=== PATIENT | female | born 1945 | race Caucasian/White ===

== ENCOUNTER 2017-09-09 12:51 | Outpatient (CLI) | payer MEDICARE ==
[2017-09-09 14:15] LABS: Hematocrit 41.7 % (36.0-47.0); Mean Platelet Volume 7.8 fL (7.4-10.4); Red Blood Cell (RBC) Count 5.04 mill/uL (4.20-5.40); White Blood Cell (WBC) Count 8.5 thou/uL (4.8-10.8)
[2017-09-09 14:21] LABS: Prothrombin Time 12.9 SEC (12.0-14.7)
[2017-09-09 14:22] LABS: PTT 26.2 SEC (22.9-36.1)
[2017-09-09 14:40] LABS: ALT (SGPT) 25 U/L (8-55); AST (SGOT) 18 U/L (5-34); Alkaline Phosphatase 69 U/L (40-150); Anion Gap 11 mmol/L (10-20); BUN (Urea Nitrogen) 15 mg/dL (9.8-20.1); Bilirubin, Total 0.5 mg/dL (0.2-1.2); Calc. Creatinine Clearance 0 mL/min (70-130); Calcium 9.9 mg/dL (7.8-10.44); Carbon Dioxide 31 mmol/L (23-31); Chloride 101 mmol/L (98-107); Cholesterol 247 mg/dl (< 200 Desired); Estimated GFR-MDRD 69; Globulin 2.4 g/dL (2.4-3.5); Protein, Total 6.9 g/dL (6.0-8.3)
== END 2017-09-09 12:52 | disposition home or self-care (01) ==
LOC: LABBT 12:51
PROVIDERS: ATTEND Internal Medicine Cardiovascular Disease
DX: Z01.818 Encounter for other preprocedural examination (principal); I20.0 Unstable angina
CPT/HCPCS: 80053; 80061; 85027; 85610; 85730

== ENCOUNTER 2017-09-12 06:08 | Inpatient (IN) | payer MEDICARE ==
[2017-09-12] MEDS ORDERED: Diazepam 5 MG TAB ONE (06:17)
[2017-09-12] MEDS ORDERED: Sodium Chloride 0.9% 1,000 ML IV SCH (07:15)
[2017-09-12] MEDS ORDERED: Diazepam 5 MG TAB PO SCH (07:15)
[2017-09-12] MEDS ORDERED: Fentanyl 100 MCG/2 ML VIAL ONE (07:19)
[2017-09-12] MEDS ORDERED: Midazolam HCl 2 mg/2 ml Vial ONE (07:19)
[2017-09-12] MEDS ORDERED: Vecuronium 10 MG VIAL ONE ×2 (08:56→10:10)
[2017-09-12] MEDS ORDERED: Midazolam HCl 5 mg/5 ml Vial ONE (08:56)
[2017-09-12] MEDS ORDERED: Fentanyl 250 MCG/5 ML VIAL ONE ×2 (08:56)
[2017-09-12] MEDS ORDERED: Heparin 10,000 UNITS/1 ML VIAL 30,000 UNITS in Sodium Chloride 0.9% 1,000 ML FS SCH (09:15)
--- NOTE | 2017-09-12 09:48 | CON ---
DATE OF CONSULTATION: 09/12/2017 HISTORY OF PRESENT ILLNESS: This is a 71-year-old female with multiple cardiovascular risk factors who suffered an anterior NV about 20 years ago and underwent stenting to her LAD. She then underwen t cardiac catheterization about 10 years ago and continued good result from the LAD stent. Over the last 3 weeks, she has had recurrent chest discomfort with minimal exertion and catheterization toda y demonstrated 90% in-stent stenosis of the LAD as well as 90% stenosis of the main right coronary a rtery with several lesions in the proximal and mid right coronary artery. The circumflex appeared n ormal. The left ventricular function was slightly diminished at about 45%. Risk factors include di abetes mellitus that has been poorly controlled with hemoglobin A1c in the 8 range. She does not ch franklin her sugars at home. She has hypertension as well as elevated cholesterol and triglyceride level s and takes her medicines sporadically because they upset her stomach. PAST SURGICAL HISTORY: Includes appendectomy and hysterectomy. She has also had removal of a blood clot or repair of a right brachial artery about 1 year ago related to a kidney stone while in an [facility]. CURRENT MEDICATIONS: Metformin 500 b.i.d., Amaryl 4 mg q.a.m., Zoloft 100 mg b.i.d., lisinopril/HCT Z 10/12.5 daily, Coreg 12.5 b.i.d., aspirin 1 a day, Lipitor 40 q.a.m. ALLERGIES: SURGICAL TAPE. SOCIAL HISTORY: She is a nonsmoker. She lives alone, although one daughter lives next door to her and one lives in [place]. PHYSICAL EXAMINATION: GENERAL: She is an alert, cooperative lady. VITAL SIGNS: Height 5 foot 5, weight 185, resting comfortably post-catheterization. NECK: She is wearing oxygen with no carotid bruits. LUNGS: Clear to auscultation anteriorly. CARDIAC: Regular rate and rhythm, no murmurs. ABDOMEN: Obese, nontender. EXTREMITIES: She has a dressing on the right groin and she has palpable popliteal and posterior tib ial pulses bilaterally. She has no peripheral edema. After review of her cardiac catheterization I feel that coronary bypass grafting to the LAD and dist al right coronary artery could be done today. Informed consent has been obtained. We have also discussed the need for better risk factor control, although she has done surprisingly w ell over the last 20 years with only marginal treatment of her risk factors.
[2017-09-12] MEDS ORDERED: Lidocaine 2% PF 10 ML AMP (For Epidural Use) ONE (10:10)
[2017-09-12] MEDS ORDERED: Propofol 200 MG/20 ML VIAL ONE (10:10)
[2017-09-12] MEDS ORDERED: Insulin Regular 300 UNITS/3 ML VIAL ONE (10:34)
--- NOTE | 2017-09-12 12:58 | OP ---
DATE OF PROCEDURE: 09/12/2017 PREOPERATIVE DIAGNOSIS: Coronary artery disease. POSTOPERATIVE DIAGNOSIS: Coronary artery disease. PROCEDURE: Coronary bypass graft x2, good quality SIMS to a 1.5 mm LAD, a satisfactory saphenous ve in to a 2 mm distal right proximal PDA. SURGEON: Dr. Dudley Montgomery MITTEN SEWER: Prashant Wolff M.D. TRANSFUSION: None. PROCEDURE IN DETAIL: After adequate anesthesia had been obtained, I placed a left radial arterial l ine and a right subclavian triple lumen CVP. The patient was then prepped and draped and Dr. Wolff harvested the left greater saphenous vein while I performed a median sternotomy. After opening the sternum, the right pleura had been entered. The mammary artery on the left was then harvested. Th e patient was heparinized, the mammary divided distally, passed posterior to the thymus gland. Aort a and right atrium were cannulated and cardiopulmonary bypass instituted. Aorta was cross-clamped a nd a liter of [place] cardioplegic solution was then given following which the distal right coronar y artery was opened onto the PDA and saphenous vein anastomoses completed here. Following this, LANDRUM A to LAD was completed. After this had been done, cross-clamp was removed, partial occluding clamp placed, and a single proximal anastomosis performed. It was marked with a ring. The patient was th en weaned from cardiopulmonary bypass, cannulas were removed, and protamine was given systemically. Mediastinal and bilateral pulmonary drains were placed, following which the sternum was reapproxima diya using vancomycin paste on the sternal edges, platelet-enriched blood, and platelet-poor plasma. A #7 interrupted wire was then utilized following which the subcutaneous tissue was closed in layer s and then skin closed. The patient is to be taken to the ICU in guarded condition.
[2017-09-12] MEDS ORDERED: Hetastarch 6% 500 ML 500 ML IVPB PRN (13:24)
[2017-09-12] MEDS ORDERED: Bisacodyl 5 MG TAB PO PRN (13:24)
[2017-09-12] MEDS ORDERED: Bisacodyl 10 MG SUPP PR PRN (13:24)
[2017-09-12] MEDS ORDERED: Phenylephrine 10 MG/NS 250 ML 250 ML IVPB PRN (13:24)
[2017-09-12] MEDS ORDERED: Guaifenesin DM 100-10/5 ML UDCUP PO PRN (13:24)
[2017-09-12] MEDS ORDERED: Post-Op Insulin Drip Protocol IVPB ONE (13:24)
[2017-09-12] MEDS ORDERED: Acetaminophen 325 MG TAB PO PRN (13:24)
[2017-09-12] MEDS ORDERED: DOPamine 400 MG/D5W 250 ML 250 ML IVPB PRN (13:24)
[2017-09-12] MEDS ORDERED: Magnesium Sulfate 5 GM in Sodium Chloride 0.9% 250 ML 1,000 ML IV SCH (13:24)
[2017-09-12] MEDS ORDERED: hydrALAZINE 20 MG/ML VIAL SLOW IVP PRN (13:24)
[2017-09-12] MEDS ORDERED: Fentanyl 100 MCG/2 ML VIAL SLOW IVP PRN (13:24)
[2017-09-12] MEDS ORDERED: Promethazine HCl 25 MG/ML VIAL IM PRN (13:24)
[2017-09-12] MEDS ORDERED: Mag-Al 1200 mg/1200 mg/30 ML UDCUP PO PRN (13:24)
[2017-09-12] MEDS ORDERED: Nitroglycerin 50 MG/250 ML BOT 250 ML IVPB PRN (13:24)
[2017-09-12] MEDS ORDERED: Morphine 2 MG/ML SYRINGE SLOW IVP PRN (13:24)
[2017-09-12] MEDS ORDERED: Dextrose 5% in Water 1,000 ML IV PRN (13:29)
[2017-09-12] MEDS ORDERED: Dextrose 50% Abboject 50 ML SYRINGE SLOW IVP PRN (13:29)
[2017-09-12] MEDS ORDERED: Iopamidol 370 76% 100 ML VIAL ONE (13:35)
[2017-09-12] MEDS: Fentanyl 100 MCG/2 ML VIAL SLOW IVP PRN ×2 (13:40→21:08)
[2017-09-12 13:43] LABS: Hematocrit 34.2 % (36.0-47.0); Mean Platelet Volume 7.7 fL (7.4-10.4); Red Blood Cell (RBC) Count 4.25 mill/uL (4.20-5.40); White Blood Cell (WBC) Count 25.3 thou/uL (4.8-10.8)
[2017-09-12 13:51] LABS: PTT 26.3 SEC (22.9-36.1); Prothrombin Time 15.9 SEC (12.0-14.7)
[2017-09-12 14:00] LABS: Anion Gap 13 mmol/L (10-20); BUN (Urea Nitrogen) 12 mg/dL (9.8-20.1); Calc. Creatinine Clearance 102 mL/min (70-130); Calcium 7.4 mg/dL (7.8-10.44); Carbon Dioxide 23 mmol/L (23-31); Chloride 108 mmol/L (98-107); Estimated GFR-MDRD 86
[2017-09-12 14:09] VITALS: BMI 27.9
[2017-09-12] MEDS ORDERED: Ketorolac Tromethamine 30 MG/ML VIAL IVP SCH (14:15)
[2017-09-12 14:18] LABS: Band 8 % (5-11); Neutrophil 75 % (42-75); Reactive Lymphocytes 1 % (0-10)
[2017-09-12] MEDS: Sodium Chloride 0.9% 1,000 ML IV SCH (14:31)
[2017-09-12] MEDS: Potassium Chloride 20 MEQ/100 ML PREMIX BAG IVPB PRN ×2 (14:34→20:42)
[2017-09-12] MEDS: Ondansetron HCl/PF 4 MG/2 ML Vial IVP PRN (15:04)
--- NOTE | 2017-09-12 15:49 | RAD ---
PORTABLE SUPINE CHEST: History: Post op sternotomy. Follow up. Comparison: 06-16-14 FINDINGS: ET tube and NG tube are in place. Central line is in adequate position. There are drainage catheters . Post op sternotomy changes. Linear atelectasis in the left lung base. Bibasilar atelectasis, more prominent on the left. Lungs are otherwise well aerated and clear. POS: [facility]
[2017-09-12] MEDS: CEFAZOLIN/Water 2 GM/20 ML SYRINGE SLOW IVP SCH (17:17)
[2017-09-12] MEDS: Ketorolac Tromethamine 30 MG/ML VIAL IVP SCH ×2 (17:17→23:54)
[2017-09-12] MEDS: HYDROcodone/Acetaminophen 5/325 mg Tablet PO PRN ×2 (18:52→22:41)
[2017-09-12 18:55] LABS: Hematocrit 38.3 % (36.0-47.0)
[2017-09-12] MEDS: Famotidine/PF 20 mg/2ml Vial SLOW IVP SCH (20:41)
[2017-09-12] MEDS: Atorvastatin Calcium 20 MG TAB PO SCH (20:41)
[2017-09-13] MEDS: Sodium Chloride 0.9% 1,000 ML IV SCH ×2 (00:25→14:53)
[2017-09-13] MEDS: CEFAZOLIN/Water 2 GM/20 ML SYRINGE SLOW IVP SCH ×2 (02:20→09:53)
[2017-09-13] MEDS: HYDROcodone/Acetaminophen 5/325 mg Tablet PO PRN ×4 (02:48→20:04)
[2017-09-13] MEDS: Ondansetron HCl/PF 4 MG/2 ML Vial IVP PRN (02:52)
[2017-09-13 04:43] LABS: Anion Gap 12 mmol/L (10-20); BUN (Urea Nitrogen) 10 mg/dL (9.8-20.1); Calc. Creatinine Clearance 101 mL/min (70-130); Calcium 7.2 mg/dL (7.8-10.44); Carbon Dioxide 24 mmol/L (23-31); Chloride 107 mmol/L (98-107); Estimated GFR-MDRD Greater than 90
[2017-09-13 04:47] LABS: #Lymphocytes 1.1 thou/uL (1.20-3.40); #Monocytes 1.1 thou/uL (0.11-0.59); #Neutrophils 16.4 thou/uL (1.40-6.50); %Basophils 0.1 % (0.0-1.0); %Eosinophils 0.1 % (0.0-10.0); %Lymphocytes 5.8 % (21.0-51.0); Hematocrit 35.3 % (36.0-47.0); Mean Platelet Volume 7.8 fL (7.4-10.4); Red Blood Cell (RBC) Count 4.31 mill/uL (4.20-5.40); White Blood Cell (WBC) Count 18.6 thou/uL (4.8-10.8)
[2017-09-13] MEDS: Ketorolac Tromethamine 30 MG/ML VIAL IVP SCH ×3 (05:46→17:24)
[2017-09-13] MEDS: Potassium Chloride 20 MEQ/100 ML PREMIX BAG IVPB PRN (05:50)
--- NOTE | 2017-09-13 05:55 | CON ---
DATE OF CONSULTATION: 09/12/2017 HISTORY OF PRESENT ILLNESS: Laurie Lind is a 71-year-old pleasant female intubated on the ve nt, status post emergency cardiac cath and CABG. Cath done years ago. She had a stent placed in. Three weeks ago, she started having recurrent chest pain. Cath demonstrated 90% stenosis in LAD and the right coronary. Please see Dr. Montgomery's note. Daughter says the patient has quit smoking 20 years ago. She is otherwise relatively healthy, other man shortness of breath, coughing, and wheezing. PAST MEDICAL HISTORY: Diabetes, hypertension, depression. HOME MEDICATIONS: Metformin 500, Amaryl 4, Zoloft 100, lisinopril 10, Coreg 12.5, and Lipitor. PAST SURGICAL HISTORY: Hysterectomy, appendix, some kind of blood clot removed from the right brach ial artery. REVIEW OF SYSTEMS: Otherwise negative. PHYSICAL EXAMINATION: GENERAL: She is awake and alert, on the CPAP. VITAL SIGNS: Pulse 94, sats 100%, good tidal volume, blood pressure 110/60. CHEST: Decreased breath sounds, no wheezing. CARDIAC: Normal S1 and S2. No gallops. ABDOMEN: Soft. No masses. LABORATORY DATA: White count 25,000, H\T\H 11 and 34, platelet count is 220. Electrolytes are norm al. Glucose slightly elevated. X-ray showed no acute infiltrates. IMPRESSION: Status post coronary artery bypass graft with diabetes, hypertension, depression, and l eukocytosis. Wean per protocol. Continue Ancef. Recheck an x-ray tomorrow. Persistent leukocytosis, consider b road spectrum antibiotics. We will follow.
--- NOTE | 2017-09-13 07:28 | EKG ---
Test Reason : POST CABG Blood Pressure : / mmHG Vent. Rate : 102 BPM Atrial Rate : 102 BPM P-R Int : 184 ms QRS Dur : 092 ms QT Int : 378 ms P-R-T Axes : 056 -38 136 degrees QTc Int : 492 ms Sinus tachycardia Left axis deviation Nonspecific ST-T changes Poor anterior R wave progression Abnormal ECG When compared with ECG of 21-MAY-2010 15:53, T wave inversion more evident in Lateral leads QT has lengthened Confirmed by DR. Jorge PHILLIP ([id number]) on 09/13/2017 7:27:56 AM Referred By: BRANDON Confirmed By:DR. Jorge PHILLIP
--- NOTE | 2017-09-13 08:51 | RAD ---
1 VIEW CHEST: Date: 09/13/17 COMPARISON: 09/12/17. HISTORY: Status post open heart surgery. FINDINGS: Interval removal of endotracheal tube. Redemonstration of right-sided central venous catheter and bi lateral chest tubes. Minimal parenchymal changes. No pneumothorax. Sternotomy wires are noted. There is consolidation with air bronchograms in the left lower lobe. IMPRESSION: Postoperative changes. POS: [facility]
[2017-09-13] MEDS ORDERED: Cefepime 1 GM in Sodium Chloride 0.9% 100 ML IVPB SCH (09:00)
[2017-09-13] MEDS: Famotidine/PF 20 mg/2ml Vial SLOW IVP SCH ×2 (09:07→20:03)
[2017-09-13] MEDS: Aspirin 325 MG TAB PO SCH (09:07)
[2017-09-13] MEDS: Fentanyl 100 MCG/2 ML VIAL SLOW IVP PRN (09:12)
--- NOTE | 2017-09-13 09:12 | PRG ---
DATE OF SERVICE: 09/13/2017 This morning she is awake, alert, responsive, complaining of pain, postop CABG. PHYSICAL EXAMINATION: VITAL SIGNS: Blood pressure 107/61, sats are 91-92, respiration rate 18. CHEST: Chest reveals decreased breath sounds without any wheezing. CARDIAC: Normal S1, S2. ABDOMEN: Soft, no masses. NEURO: Neurologically, she is awake, alert, responsive. LABORATORY AND X-RAY FINDINGS: X-ray shows slight cardiomegaly, elevated diaphragms, nonspecific le ft-sided infiltrate. IMPRESSION: 1. Post-coronary artery bypass graft. 2. Left lung atelectasis. PLAN: Continue supportive care and PT. We will follow. I am going to start her on empiric antibiotics since there is a left retrocardiac d ensity.
--- NOTE | 2017-09-13 09:19 | PRG ---
DATE OF SERVICE: 09/13/2017 Ms. Kaplan is doing well postoperatively. No complaints. PHYSICAL EXAMINATION: VITAL SIGNS: Blood pressure 110 systolic. Pulse in the 80s and 90s, normal sinus rhythm. ABDOMEN: Soft, nontender. EXTREMITIES: No edema. ASSESSMENT: 1. Status post coronary bypass grafting done urgently with a critical stenosis. 2. Hypercholesterolemia. The patient's cholesterol previously had been controlled, but the patient had stopped taking her medicines. PLAN: 1. Continue current medical regimen including aspirin. 2. Resume statin therapy. 3. Probably remove chest tubes tomorrow.
[2017-09-13] MEDS ORDERED: Cefepime 1 GM, Admixture Fee 1 EACH in Sodium Chloride 0.9% 100 ML IVPB SCH (10:00)
[2017-09-13] MEDS ORDERED: Insulin Detemir 100 UNITS/ML 12 UNITS in Pre-Filled Syringe 1 EACH SC SCH (10:45)
[2017-09-13 12:46] LABS: Sodium 140 mmol/L (135-148)
[2017-09-13 12:46] LABS: Sodium 141 mmol/L (135-148)
[2017-09-13 12:46] LABS: Oxyhemoglobin 98.1 % (94.0-97.0); Sodium 139 mmol/L (135-148)
[2017-09-13 12:47] LABS: Sodium 139 mmol/L (135-148)
[2017-09-13 12:47] LABS: Oxyhemoglobin 97.8 % (94.0-97.0); Sodium 141 mmol/L (135-148)
[2017-09-13 12:52] LABS: Mode OR ABG; Vent YES
[2017-09-13 12:53] LABS: Mode ORABG; Vent YES
[2017-09-13 12:55] LABS: Mode OR ABG; Vent YES
[2017-09-13 12:55] LABS: Mode OR ABG; Vent YES
[2017-09-13 12:55] LABS: Mode OR ABG; Vent YES
[2017-09-13] MEDS ORDERED: Sodium Chloride 0.9% 10 ML ONE (17:14)
[2017-09-13] MEDS: Insulin Regular 300 UNITS/3 ML VIAL SC PRN ×2 (17:34→20:23)
[2017-09-13] MEDS: Cefepime 1 GM, Admixture Fee 1 EACH in Sodium Chloride 0.9% 100 ML IVPB SCH (20:02)
[2017-09-13] MEDS: Atorvastatin Calcium 20 MG TAB PO SCH (20:03)
[2017-09-14] MEDS: Ketorolac Tromethamine 30 MG/ML VIAL IVP SCH ×3 (00:24→12:13)
[2017-09-14] MEDS: Sodium Chloride 0.9% 1,000 ML IV SCH (04:57)
[2017-09-14] MEDS: HYDROcodone/Acetaminophen 5/325 mg Tablet PO PRN ×3 (04:57→21:10)
[2017-09-14 05:25] LABS: #Eosinphils 0.1 thou/uL (0.0-0.7); #Lymphocytes 1.6 thou/uL (1.20-3.40); #Monocytes 0.6 thou/uL (0.11-0.59); #Neutrophils 9.4 thou/uL (1.40-6.50); %Basophils 0.1 % (0.0-1.0); %Eosinophils 0.5 % (0.0-10.0); %Monocytes 4.8 % (0.0-10.0); Hematocrit 28.7 % (36.0-47.0); Mean Platelet Volume 7.9 fL (7.4-10.4); Red Blood Cell (RBC) Count 3.39 mill/uL (4.20-5.40); White Blood Cell (WBC) Count 11.6 thou/uL (4.8-10.8)
[2017-09-14 05:45] LABS: Anion Gap 8 mmol/L (10-20); BUN (Urea Nitrogen) 10 mg/dL (9.8-20.1); Calc. Creatinine Clearance 97 mL/min (70-130); Calcium 7.7 mg/dL (7.8-10.44); Carbon Dioxide 26 mmol/L (23-31); Chloride 105 mmol/L (98-107); Estimated GFR-MDRD 90
[2017-09-14] MEDS: Insulin Regular 300 UNITS/3 ML VIAL SC PRN ×4 (06:10→22:32)
[2017-09-14] MEDS: Aspirin 325 MG TAB PO SCH (07:09)
[2017-09-14] MEDS: Famotidine/PF 20 mg/2ml Vial SLOW IVP SCH (07:09)
--- NOTE | 2017-09-14 08:42 | RAD ---
1 VIEW CHEST: Date: 09/14/17 COMPARISON: 09/13/17. HISTORY: Status post open heart surgery. FINDINGS: Stable right-sided central venous catheter. Interval removal of bilateral chest tubes. Pleural and p arenchymal changes left lung base. Diminished lung volumes. Sternotomy wires are noted. No definite pneumothorax. IMPRESSION: Pleural and parenchymal changes left lung base. POS: [facility]
[2017-09-14] MEDS: Cefepime 1 GM, Admixture Fee 1 EACH in Sodium Chloride 0.9% 100 ML IVPB SCH ×2 (09:38→21:08)
--- NOTE | 2017-09-14 09:45 | ULT ---
ULTRASOUND RIGHT GROIN FOR PSEUDOANEURYSM EVALUATION: Date: 09/14/17 INDICATION: Post catheterization procedure right groin. Groin tenderness and swelling. FINDINGS: Common femoral vein and common femoral artery show normal blood flow with Doppler and spectral regina sis. No evidence of pseudoaneurysm. No evidence of significant soft tissue hematoma. IMPRESSION: No evidence of pseudoaneurysm. POS: [facility]
--- NOTE | 2017-09-14 11:46 | PRG ---
DATE OF SERVICE: 09/14/2017 SUBJECTIVE: Ms. Lind feeling much better today after the chest tubes were removed. Her pain imp roved dramatically. PHYSICAL EXAMINATION: VITAL SIGNS: Blood pressure 124/40, pulse 80. LUNGS: Clear. CARDIAC: Normal S1, S2. ABDOMEN: Soft, nontender. EXTREMITIES: No edema. The right groin is mildly tender. ASSESSMENT: 1. Status post urgent bypass surgery for severe coronary artery disease. 2. Mild groin soreness. PLAN: 1. We will go ahead and do an ultrasound of the groin. She did go quickly to the operating room af ter sheath removal just to make sure her groin is okay. 2. Hypercholesterolemia, back on statin therapy. 3. Probably go to the floor soon and the patient is progressing nicely.
[2017-09-14] MEDS ORDERED: Furosemide 40 MG/4 ML VIAL SLOW IVP SCH (12:00)
[2017-09-14] MEDS ORDERED: Mag-Al 1200 mg/1200 mg/30 ML UDCUP PO PRN (13:29)
[2017-09-14] MEDS ORDERED: Bisacodyl 10 MG SUPP PR PRN (13:29)
[2017-09-14] MEDS ORDERED: Bisacodyl 5 MG TAB PO PRN (13:29)
[2017-09-14] MEDS ORDERED: diphenhydrAMINE 25 MG CAP PO PRN (13:29)
[2017-09-14] MEDS ORDERED: Mineral Oil ENEMA PR PRN (13:29)
[2017-09-14] MEDS ORDERED: Nitroglycerin 0.4 MG TAB 1 EACH SL PRN (13:29)
--- NOTE | 2017-09-14 17:22 | PRG ---
DATE OF SERVICE: 09/14/2017 SUBJECTIVE: Ms. Lind had no new complaints today. OBJECTIVE: VITAL SIGNS: She is afebrile, heart rate is 70, respiratory rate is 22, oximetry is 94, and blood p ressure 137/96. LUNGS: Clear anteriorly and laterally. HEART: Regular rhythm. ABDOMEN: Soft. LABORATORY AND DIAGNOSTIC DATA: Chest radiograph is unchanged with haziness at the left base as exp ected with heart surgery. White count is down from 18.6-11.6, hemoglobin 9.5, and platelets 134. E lectrolytes are normal. IMPRESSION: 1. ? pneumonia. 2. Status post emergent coronary artery bypass grafting. 3. History of lipid disorder. PLAN: Transfer out of the Critical Care Unit.
[2017-09-14] MEDS: metFORMIN 500 MG TAB PO SCH (17:38)
[2017-09-14] MEDS ORDERED: Insulin Regular 300 UNITS/3 ML VIAL SC SCH (18:00)
--- NOTE | 2017-09-14 19:32 | PDOC.PN ---
- Subjective Encounter Start Date: 09/14/17 Encounter Start Time: 19:30 Pt seen for management of medical comorbidities including diabetes mellitus. Denies chest pain, shortness of breath, fevers or chills. - Objective Vital Signs & Weight: Vital Signs (12 hours) Temp Pulse Resp BP Pulse Ox 09/14/17 17:50 98.3 F 85 20 114/54 L 92 L 09/14/17 13:57 99 09/14/17 13:56 98.2 F 90 22 H 137/96 H 94 L 09/14/17 12:00 98.4 F Weight Admit Weight 167 lb 8.821 oz Weight 159 lb 9.835 oz Most Recent Monitor Data Heart Rate from ECG 87 NIBP 125/45 NIBP BP-Mean 72 Respiration from ECG 25 SpO2 93 I&O: 09/13/17 09/14/17 09/15/17 06:59 06:59 06:59 Intake Total 2325.6 1434 1060 Output Total 1640 1345 1736 Balance 685.6 89 -676 Result Diagrams: 09/14/17 04:55 09/14/17 04:55 Additional Labs: Accuchecks 09/14/17 09/14/17 09/13/17 10:58 06:10 20:22 POC Glucose 261 H 220 H 272 H Phys Exam - Physical Examination Constitutional: NAD HEENT: moist MMs, oral pharynx no lesions Neck: supple Respiratory: clear to auscultation bilateral Cardiovascular: RRR Gastrointestinal: soft, non-tender, positive bowel sounds Neurological: moves all 4 limbs Psychiatric: normal affect Skin: no rash Deviation from normal: surgical sites clean Dx/Plan (1) DM2 (diabetes mellitus, type 2) Status: Chronic (2) Dyslipidemia Code(s): E78.5 - HYPERLIPIDEMIA, UNSPECIFIED Status: Chronic (3) Hypertension Code(s): I10 - ESSENTIAL (PRIMARY) HYPERTENSION Status: Chronic - Plan * . Accuchecks high, start Levemir 10 units in AM and 5 units in PM (to decrease the chance of nocturnal hypoglycemia), continue accuchecks and titrate insulin. Continue insulin sliding scale. Continue statin. Monitor vital signs and titrate antihypertensives as needed. s/p CABG. Code status: Full. Review of Systems - Review of Systems Constitutional: negative: Fever, Chills, Sweats, Weakness, Malaise Respiratory: negative: Cough, Dry, Shortness of Breath, Hemoptysis, SOB with Excertion, Pleuritic Pain, Sputum, Wheezing Cardiovascular: negative: Chest Pain, Palpitations, Orthopnea, Paroxysmal Noc. Dyspnea, Edema, Light Headedness - Medications/Allergies Allergies/Adverse Reactions: Allergies Allergy/AdvReac Type Severity Reaction Status Date / Time SURGICAL TAPE Allergy Rash Uncoded 09/09/17 13:31 Medications: Current Medications Acetaminophen (Tylenol) 650 mg PO Q6H PRN PRN Reason: Headache/Fever Or Mild Pain Hydrocodone Bitart/Acetaminophen (Brady 5/325) 1 tab PO Q4H PRN PRN Reason: Moderate Pain (4-6) Last Admin: 09/12/17 22:41 Dose: 1 tab Hydrocodone Bitart/Acetaminophen (Brady 5/325) 2 tab PO Q4H PRN PRN Reason: Severe Pain (7-10) Last Admin: 09/14/17 14:11 Dose: 2 tab Al Hydroxide/Mg Hydroxide (Maalox) 30 ml PO Q4H PRN PRN Reason: Indigestion Albuterol/Ipratropium (Duoneb) 3 ml NEB [id number] PRN PRN Reason: SHORTNESS OF BREATH Last Admin: 09/13/17 22:47 Dose: 3 ml Aspirin (Ecotrin) 325 mg PO DAILY [facility] Atorvastatin Calcium (Lipitor) 20 mg PO HS [facility] Bisacodyl (Dulcolax) 10 mg PO Q12H PRN PRN Reason: Constipation Bisacodyl (Dulcolax) 10 mg CA Q12H PRN PRN Reason: Constipation Carvedilol (Coreg) 3.125 mg PO BID [facility] Dextrose/Water (Dextrose 50%) 25 gm SLOW IVP PRN PRN PRN Reason: PER HYPOGLYCEMIC PROTOCOL Diphenhydramine HCl (Benadryl) 25 mg PO Q6H PRN PRN Reason: Itching & Insomnia or Mohit Erich Famotidine (Pepcid) 20 mg PO BID [facility] Furosemide (Lasix) 40 mg PO DAILY-AC [facility] Glimepiride (Amaryl) 4 mg PO QAM-WM [facility] Glucagon (Glucagon) 1 mg SC PRN PRN PRN Reason: PER HYPOGLYCEMIC PROTOCOL Guaifenesin/Dextromethorphan (Robitussin Dm) 15 ml PO Q4H PRN PRN Reason: Cough Dextrose/Water (D5w) 1,000 mls @ 0 mls/hr IV INF PRN; As Directed PRN Reason: PRN HYPOGLYCEMIC PROTOCOL Cefepime HCl 1 gm/Miscellaneous Medication 1 each/ Sodium Chloride 100 mls @ 200 mls/hr IVPB Q12HR [facility] Last Admin: 09/14/17 09:38 Dose: 100 mls Insulin Detemir 10 units/ (Miscellaneous Medication) 0.1 mls @ 0 mls/hr SC QAM [facility] Insulin Detemir 5 units/ (Miscellaneous Medication) 0.05 mls @ 0 mls/hr SC HS [facility] Insulin Human Regular (Humulin R) 0 units SC Q4H PRN; Protocol PRN Reason: POST OP SLIDING SCALE Last Admin: 09/14/17 17:37 Dose: 10 units Insulin Human Regular (Humulin R) 5 units SC NOW [facility] Stop: 09/14/17 20:00 Last Admin: 09/14/17 17:55 Dose: 5 unit Metformin HCl (Glucophage) 1,000 mg PO BID-[facility] Last Admin: 09/14/17 17:38 Dose: 1,000 mg Mineral Oil (Fleet Mineral Oil) 133 ml CA DAILYPRN PRN PRN Reason: Constipation Nitroglycerin (Nitrostat) 0.4 mg SL Q5MIN PRN PRN Reason: Chest Pain Ondansetron HCl (Zofran) 4 mg IVP Q6H PRN PRN Reason: Nausea/Vomiting Last Admin: 09/13/17 02:52 Dose: 4 mg Potassium Chloride (Klor-Con 10) 10 meq PO QAM-[facility] Sertraline HCl (Zoloft) 100 mg PO BID [facility] Last Admin: 09/14/17 07:09 Dose: 100 mg
[2017-09-14] MEDS: Famotidine 20 MG TAB PO SCH (21:09)
[2017-09-14] MEDS: Carvedilol 3.125 MG TAB PO SCH (21:09)
[2017-09-14] MEDS: Atorvastatin Calcium 20 MG TAB PO SCH (21:09)
[2017-09-14] MEDS: Insulin Detemir 100 UNITS/ML 5 UNITS in Pre-Filled Syringe 1 EACH SC SCH (22:31)
[2017-09-15] MEDS: HYDROcodone/Acetaminophen 5/325 mg Tablet PO PRN ×4 (02:00→17:46)
[2017-09-15] MEDS: Aspirin 325 mg Enteric Coated Tablet PO SCH (08:16)
[2017-09-15] MEDS: Famotidine 20 MG TAB PO SCH ×2 (08:16→21:10)
[2017-09-15] MEDS: Glimepiride 4 MG TAB PO SCH (08:17)
[2017-09-15] MEDS: metFORMIN 500 MG TAB PO SCH ×2 (08:17→17:46)
[2017-09-15] MEDS: Insulin Detemir 100 UNITS/ML 10 UNITS in Pre-Filled Syringe 1 EACH SC SCH (08:17)
[2017-09-15] MEDS: Potassium Chloride 10 MEQ TAB PO SCH (08:17)
[2017-09-15] MEDS: Carvedilol 3.125 MG TAB PO SCH ×2 (08:17→21:10)
[2017-09-15] MEDS: Furosemide 40 MG TAB PO SCH (08:17)
[2017-09-15] MEDS: Insulin Regular 300 UNITS/3 ML VIAL SC PRN ×4 (08:18→21:13)
[2017-09-15] MEDS: Cefepime 1 GM, Admixture Fee 1 EACH in Sodium Chloride 0.9% 100 ML IVPB SCH (10:04)
--- NOTE | 2017-09-15 11:15 | PDOC.PN ---
- Subjective Encounter Start Date: 09/15/17 Encounter Start Time: 11:15 Subjective: very pleasant lady with daughter at bedside, c/o left calf burning with -: movement - Objective MAR Reviewed: Yes Vital Signs & Weight: Vital Signs (12 hours) Temp Pulse Resp BP Pulse Ox 09/15/17 08:00 97.9 F 78 18 92 L 09/15/17 07:55 97.9 F 78 18 123/58 L 92 L 09/15/17 04:00 98.5 F 87 20 114/56 L 94 L 09/15/17 00:00 18 Weight Admit Weight 167 lb 8.821 oz Weight 167 lb 14.4 oz Most Recent Monitor Data Heart Rate from ECG 87 NIBP 125/45 NIBP BP-Mean 72 Respiration from ECG 25 SpO2 93 I&O: 09/14/17 09/15/17 09/16/17 06:59 06:59 06:59 Intake Total 1434 1330 Output Total 1345 1836 Balance 89 -506 Result Diagrams: 09/14/17 04:55 09/14/17 04:55 Additional Labs: Accuchecks 09/15/17 09/14/17 09/14/17 06:07 20:50 10:58 POC Glucose 208 H 255 H 261 H Phys Exam - Physical Examination Constitutional: NAD HEENT: moist MMs, sclera anicteric Neck: supple, full ROM Respiratory: clear to auscultation bilateral Cardiovascular: RRR Gastrointestinal: soft, non-tender Musculoskeletal: no edema Neurological: non-focal, normal sensation, moves all 4 limbs Psychiatric: normal affect, A&O x 3 Deviation from normal: sternal wound c/d/i Dx/Plan (1) S/P CABG (coronary artery bypass graft) Code(s): Z95.1 - PRESENCE OF AORTOCORONARY BYPASS GRAFT Status: Acute (2) DM2 (diabetes mellitus, type 2) Status: Chronic (3) Dyslipidemia Code(s): E78.5 - HYPERLIPIDEMIA, UNSPECIFIED Status: Chronic (4) Hypertension Code(s): I10 - ESSENTIAL (PRIMARY) HYPERTENSION Status: Chronic - Plan cont current plan of care, plan discussed w/ family, PT/OT, incentive spirometry doing well, to rehab per CTS * .
--- NOTE | 2017-09-15 14:44 | PRG ---
DATE OF SERVICE: 09/15/2017 SUBJECTIVE: Laurie Lind is complaining of some paresthesias in her anterior left leg. She says these went away when she laid down, for return when she is walking or sitting up in a chair. Her d wesley tells me she has a history of spinal stenosis. I suspect these symptoms are related to that . OBJECTIVE: VITAL SIGNS: She is afebrile, heart rate 73, respiratory rate is 18, oximetry is 96 on 1 liter, blo od pressure 116/57. LUNGS: Clear. HEART: Regular rhythm. IMPRESSION: 1. ? pneumonia. 2. Status post coronary artery bypass grafting. 3. Lipid disorder. 4. Symptoms suggestive of spinal stenosis. PLAN: P.o. antimicrobial therapy. Continue physical therapy.
--- NOTE | 2017-09-15 19:32 | PRG ---
DATE OF SERVICE: 09/15/2017 HISTORY: Ms. Lind is doing better today. She is out on the telemetry. She has been walking fee l much better. PHYSICAL EXAMINATION VITAL SIGNS: Blood pressure 113/56, pulse 80s, regular. LUNGS: Clear. CARDIAC: Normal S1, normal S2. ABDOMEN: Soft, nontender. EXTREMITIES: No edema. ASSESSMENT: 1. Status post bypass surgery, doing well. 2. Hypercholesterolemia. The patient's cholesterol and triglycerides were very high cholesterol 24 7, triglycerides 558. She stopped taking some of the lipid lowering drugs. 3. Mild anemia. PLAN: Continue current medical regimen. She would likely be going home in 1-2 days.
[2017-09-15] MEDS: Atorvastatin Calcium 20 MG TAB PO SCH (21:10)
[2017-09-15] MEDS: Cefdinir 300 MG CAP PO SCH (21:10)
[2017-09-15] MEDS: Insulin Detemir 100 UNITS/ML 5 UNITS in Pre-Filled Syringe 1 EACH SC SCH (21:11)
[2017-09-16] MEDS: HYDROcodone/Acetaminophen 5/325 mg Tablet PO PRN ×4 (01:47→20:28)
[2017-09-16 07:41] LABS: Hemoglobin A1c 9.2 % (4.0-6.0)
--- NOTE | 2017-09-16 08:25 | PDOC.PN ---
- Subjective Encounter Start Date: 09/16/17 Encounter Start Time: 08:00 Subjective: no new complaints - Objective MAR Reviewed: Yes Vital Signs & Weight: Vital Signs (12 hours) Temp Pulse Resp BP Pulse Ox 09/16/17 04:00 98.1 F 78 18 129/59 L 93 L 09/16/17 00:00 18 Weight Admit Weight 167 lb 8.821 oz Weight 172 lb 1.6 oz Most Recent Monitor Data Heart Rate from ECG 87 NIBP 125/45 NIBP BP-Mean 72 Respiration from ECG 25 SpO2 93 I&O: 09/15/17 09/16/17 09/17/17 06:59 06:59 06:59 Intake Total 1330 1220 Output Total 1836 1150 Balance -506 70 Result Diagrams: 09/14/17 04:55 09/14/17 04:55 Additional Labs: Accuchecks 09/16/17 09/15/17 09/15/17 06:06 19:55 16:09 POC Glucose 197 H 185 H 156 H 09/15/17 12:07 POC Glucose 212 H Phys Exam - Physical Examination Constitutional: NAD HEENT: PERRLA, moist MMs, sclera anicteric Neck: supple, full ROM Respiratory: clear to auscultation bilateral Cardiovascular: RRR Gastrointestinal: soft, non-tender Musculoskeletal: no edema, pulses present Neurological: non-focal, moves all 4 limbs Psychiatric: normal affect, A&O x 3 Deviation from normal: sternal wound cdi Dx/Plan (1) S/P CABG (coronary artery bypass graft) Code(s): Z95.1 - PRESENCE OF AORTOCORONARY BYPASS GRAFT Status: Acute (2) DM2 (diabetes mellitus, type 2) Status: Chronic (3) Dyslipidemia Code(s): E78.5 - HYPERLIPIDEMIA, UNSPECIFIED Status: Chronic (4) Hypertension Code(s): I10 - ESSENTIAL (PRIMARY) HYPERTENSION Status: Chronic - Plan cont current plan of care, plan discussed w/ family, continue antibiotics, PT/OT , incentive spirometry disposition per CTS * .
[2017-09-16] MEDS: Potassium Chloride 10 MEQ TAB PO SCH (08:28)
[2017-09-16] MEDS: Cefdinir 300 MG CAP PO SCH ×2 (08:28→20:25)
[2017-09-16] MEDS: metFORMIN 500 MG TAB PO SCH ×2 (08:29→16:33)
[2017-09-16] MEDS: Furosemide 40 MG TAB PO SCH (08:29)
[2017-09-16] MEDS: Famotidine 20 MG TAB PO SCH ×2 (08:29→20:25)
[2017-09-16] MEDS: Aspirin 325 mg Enteric Coated Tablet PO SCH (08:29)
[2017-09-16] MEDS: Glimepiride 4 MG TAB PO SCH (08:29)
[2017-09-16] MEDS: Carvedilol 3.125 MG TAB PO SCH ×2 (08:30→20:25)
[2017-09-16] MEDS: Enoxaparin Sodium 40 MG/0.4 ML SYRINGE SC SCH (08:30)
[2017-09-16] MEDS: Insulin Detemir 100 UNITS/ML 10 UNITS in Pre-Filled Syringe 1 EACH SC SCH (09:22)
--- NOTE | 2017-09-16 09:43 | PRG ---
DATE OF SERVICE: 09/16/2017 This morning she is awake, alert, responsive. PHYSICAL EXAMINATION: VITAL SIGNS: Afebrile, temperature is 98, O2 sats 91, blood pressure 125/90, respirations 18, I's and O's 1330 in, 836 out. CHEST: Chest revealed decreased breath sounds without any wheezing. CARDIAC: Normal S1, S2. ABDOMEN: Soft, no masses. IMPRESSION: 1. Status post coronary artery bypass graft. 2. Leukocytosis. 3. Left retrocardiac density. PLAN: Give p.o. antibiotics, PT, supportive care.
--- NOTE | 2017-09-16 11:04 | PRG ---
DATE OF SERVICE: 09/16/2017 SUBJECTIVE: Ms. Lind is doing well. Her breathing is better. She has no angina. She has posto perative chest discomfort, but that is improving. PHYSICAL EXAMINATION: VITAL SIGNS: Blood pressure is 123/57, pulse 72, regular. LUNGS: Clear. CARDIAC: Normal S1, normal S2. ABDOMEN: Soft, nontender. EXTREMITIES: She has no edema. ASSESSMENT: 1. Status post bypass surgery. 2. Diabetes. 3. Hypercholesterolemia on medicines. PLAN: Probably home tomorrow. The patient is doing well now.
--- NOTE | 2017-09-16 11:04 | PQF ---
CLINICAL DOCUMENTATION IMPROVEMENT CLARIFICATION FORM: ICD-10 Updated PLEASE DO AN ADDENDUM TO THE PROGRESS NOTE WITH ANY DOCUMENTATION UPDATES OR ADDITIONS AND CARRY THROUGH TO DC SUMMARY. THANK YOU. DATE: 09/16/17 ATTN: Dr. Poli Quiroz Please exercise your independent, professional judgment in responding to the clarification form. Clinical indicators are provided on the bottom of this form for your review Please check appropriate box(s): [ ] Empirically treating Gram Negative Pneumonia [ ] Empirically treating Anaerobic Pneumonia [ ] Simple Pneumonia (community acquired - nosocomial) [ x] Pneumonia of unknown etiology [ ] Other diagnosis [ ] Unable to determine In addition, please specify: Present on Admission (POA): [ ] Yes [ ] No [ ] Unable to determine For continuity of documentation, please document condition throughout progress notes and discharge summary. Thank You. CLINICAL INDICATORS - SIGNS / SYMPTOMS / LABS PULM. PN 09/13: X-RAY SHOWS SLIGHT CARDIOMEGALY, ELEVATED DIAPHRAGMS, NONSPECIFIC LEFT-SIDED INFILTRATE LEFT LUNG ATELECTASIS START EMPIRIC ANTIBIOTICS SINCE THERE IS A L RETROCARDIAC DENSITY. PULM PN 09/14-09/15: ? PNEUMONIA S/P EMERGENT CABG RISKS: OP NOTE 09/12: CABG X2. PULMONOLOGY CONSULT 09/12: INTUBATED ON VENT, S/P EMERGENCY CARDIAC CATH & CABG. DIABETES, HYPERTENSION. PERSISTENT LEUKOCYTOSIS. TREATMENTS: CPOE 09/13 TO 09/15. IV MAXIPIME 1 GM Q 12 HR. CPOE 09/15: OMNICEF 300MG PO BID (This form is maintained as a part of the permanent medical record) 2014 [employer]. All Rights Reserved Adrianna Ly RN, BSN [email or web address] Office: [phone] [facility] [email or web address]
[2017-09-16 12:25] LABS: Oxyhemoglobin 97.8 % (94.0-97.0); Sodium 141 mmol/L (135-148)
[2017-09-16 13:05] LABS: Vent YES
[2017-09-16 13:06] LABS: Mode OR ABG
[2017-09-16] MEDS: Insulin Regular 300 UNITS/3 ML VIAL SC PRN ×3 (13:50→20:26)
[2017-09-16] MEDS: Atorvastatin Calcium 20 MG TAB PO SCH (20:25)
[2017-09-16] MEDS: Insulin Detemir 100 UNITS/ML 5 UNITS in Pre-Filled Syringe 1 EACH SC SCH (20:26)
[2017-09-17] MEDS: Carvedilol 3.125 MG TAB PO SCH ×2 (07:53→20:58)
[2017-09-17] MEDS: Potassium Chloride 10 MEQ TAB PO SCH (07:53)
[2017-09-17] MEDS: Furosemide 40 MG TAB PO SCH (07:53)
[2017-09-17] MEDS: Glimepiride 4 MG TAB PO SCH (07:53)
[2017-09-17] MEDS: Cefdinir 300 MG CAP PO SCH ×2 (07:53→20:59)
[2017-09-17] MEDS: Famotidine 20 MG TAB PO SCH ×2 (07:53→20:58)
[2017-09-17] MEDS: metFORMIN 500 MG TAB PO SCH ×2 (07:53→17:03)
[2017-09-17] MEDS: Aspirin 325 mg Enteric Coated Tablet PO SCH (07:54)
[2017-09-17] MEDS: Enoxaparin Sodium 40 MG/0.4 ML SYRINGE SC SCH (07:54)
[2017-09-17] MEDS: Insulin Detemir 100 UNITS/ML 10 UNITS in Pre-Filled Syringe 1 EACH SC SCH (09:07)
--- NOTE | 2017-09-17 09:37 | PDOC.PN ---
- Subjective Encounter Start Date: 09/17/17 Encounter Start Time: 09:00 Subjective: up in chair, c/o incisional pain. leg cramping resolved - Objective MAR Reviewed: Yes Vital Signs & Weight: Vital Signs (12 hours) Temp Pulse Resp BP Pulse Ox 09/17/17 08:03 98.4 F 76 20 121/59 L 93 L 09/17/17 08:00 98.4 F 76 20 93 L 09/17/17 04:00 98.0 F 73 16 112/57 L 92 L 09/17/17 00:50 93 L Weight Admit Weight 167 lb 8.821 oz Weight 168 lb 3.2 oz Most Recent Monitor Data Heart Rate from ECG 87 NIBP 125/45 NIBP BP-Mean 72 Respiration from ECG 25 SpO2 93 I&O: 09/16/17 09/17/17 09/18/17 06:59 06:59 06:59 Intake Total 1220 1680 Output Total 1150 2750 Balance 70 -1070 Result Diagrams: 09/14/17 04:55 09/14/17 04:55 Additional Labs: Accuchecks 09/17/17 09/16/17 09/16/17 05:17 19:59 16:33 POC Glucose 182 H 206 H 170 H 09/16/17 10:34 POC Glucose 235 H Phys Exam - Physical Examination Constitutional: NAD HEENT: PERRLA, moist MMs, sclera anicteric Neck: supple, full ROM Respiratory: no rhonchi, clear to auscultation bilateral Cardiovascular: RRR marques Gastrointestinal: soft, non-tender Musculoskeletal: no edema Neurological: non-focal, moves all 4 limbs Psychiatric: normal affect, A&O x 3 Skin: no rash Dx/Plan (1) S/P CABG (coronary artery bypass graft) Code(s): Z95.1 - PRESENCE OF AORTOCORONARY BYPASS GRAFT Status: Acute (2) DM2 (diabetes mellitus, type 2) Status: Chronic (3) Dyslipidemia Code(s): E78.5 - HYPERLIPIDEMIA, UNSPECIFIED Status: Chronic (4) Hypertension Code(s): I10 - ESSENTIAL (PRIMARY) HYPERTENSION Status: Chronic - Plan cont current plan of shelter once cleared by primary service * .
--- NOTE | 2017-09-17 11:32 | PRG ---
DATE OF SERVICE: 09/17/2017 This morning she is awake, alert, responsive. PHYSICAL EXAMINATION: VITAL SIGNS: Blood pressure 129/59. Sats are 93, temperature 98. She feels less short of breath. She is walking. CHEST: Chest revealed decreased breath sounds, no wheezing. CARDIAC: Normal S1, S2. ABDOMEN: Soft, no masses. IMPRESSION: 1. Status post coronary artery bypass graft. 2. Left-sided retrocardiac density on p.o. antibiotics. PLAN: Disposition as per Cardiology. We will follow at a distance. Please call as needed.
[2017-09-17] MEDS: Insulin Regular 300 UNITS/3 ML VIAL SC PRN ×2 (13:03→18:04)
[2017-09-17] MEDS: HYDROcodone/Acetaminophen 5/325 mg Tablet PO PRN ×2 (14:43→20:58)
[2017-09-17] MEDS: Ondansetron HCl/PF 4 MG/2 ML Vial IVP PRN (14:45)
[2017-09-17] MEDS: Atorvastatin Calcium 20 MG TAB PO SCH (20:57)
[2017-09-17] MEDS: Insulin Detemir 100 UNITS/ML 5 UNITS in Pre-Filled Syringe 1 EACH SC SCH (20:59)
--- NOTE | 2017-09-18 06:54 | DIS ---
HOSPITAL COURSE: This is a 71-year-old female who underwent cardiac catheterization today demonstra ting 90% LAD and right coronary lesions. She was taken to the operating room on the day of catheter ization where she underwent 2-vessel bypass grafting to the LAD and right PDA. Postoperative course was relatively unremarkable. Her glucose was significantly elevated and her admission A1c was 9.2. She was seen by Antoine and in addition to her admitting metformin and Amaryl she had the addition o f long-acting insulin twice a day. At the time of this dictation, I do not know which diabetic medi cine she will be discharged on; however, her other discharge medications will include resuming her a torvastatin 40 q.a.m., Coreg 3.125 b.i.d., Omnicef 300 b.i.d. She can resume her [id number] m edicines. She will receive a prescription for Tylenol #3, resume her Zoloft 100 mg a day. Continue her aspirin every day. She will follow up with me in 3 weeks and the plan is for outpatient cardiac rehab in [place] since s he is going to spend some time with her daughter there. Discharge and follow up instructions have roger bowden given.
[2017-09-18] MEDS: Furosemide 40 MG TAB PO SCH (09:44)
[2017-09-18] MEDS: metFORMIN 500 MG TAB PO SCH (09:44)
[2017-09-18] MEDS: Glimepiride 4 MG TAB PO SCH (09:44)
[2017-09-18] MEDS: Cefdinir 300 MG CAP PO SCH (09:45)
[2017-09-18] MEDS: Aspirin 325 mg Enteric Coated Tablet PO SCH (09:45)
[2017-09-18] MEDS: Famotidine 20 MG TAB PO SCH (09:45)
[2017-09-18] MEDS: Carvedilol 3.125 MG TAB PO SCH (09:45)
[2017-09-18] MEDS: Potassium Chloride 10 MEQ TAB PO SCH (09:45)
[2017-09-18] MEDS: Insulin Detemir 100 UNITS/ML 10 UNITS in Pre-Filled Syringe 1 EACH SC SCH (09:46)
[2017-09-18] MEDS: Enoxaparin Sodium 40 MG/0.4 ML SYRINGE SC SCH (09:46)
--- NOTE | 2017-09-18 11:03 | PDOC.PN ---
- Subjective Encounter Start Date: 09/18/17 Encounter Start Time: 10:59 Patient seen at bedside. No overnight events, no new complaints. - Objective MAR Reviewed: Yes Vital Signs & Weight: Vital Signs (12 hours) Temp Pulse Resp BP Pulse Ox 09/18/17 08:00 98.8 F 75 17 118/53 L 92 L 09/18/17 04:50 98.7 F 68 16 115/54 L 93 L Weight Admit Weight 167 lb 8.821 oz Weight 169 lb 1.6 oz Most Recent Monitor Data Heart Rate from ECG 87 NIBP 125/45 NIBP BP-Mean 72 Respiration from ECG 25 SpO2 93 I&O: 09/17/17 09/18/17 09/19/17 06:59 06:59 06:59 Intake Total 1680 1320 Output Total 2750 1250 Balance -1070 70 Result Diagrams: 09/14/17 04:55 09/14/17 04:55 Additional Labs: Accuchecks 09/18/17 09/17/17 09/17/17 05:29 20:06 17:00 POC Glucose 139 H 145 H 171 H 09/17/17 11:16 POC Glucose 199 H Phys Exam - Physical Examination Constitutional: NAD HEENT: moist MMs Neck: no JVD Respiratory: clear to auscultation bilateral Cardiovascular: RRR Gastrointestinal: soft Musculoskeletal: pulses present Neurological: moves all 4 limbs Psychiatric: A&O x 3 Deviation from normal: Surgical scar healing well Dx/Plan (1) S/P CABG (coronary artery bypass graft) Code(s): Z95.1 - PRESENCE OF AORTOCORONARY BYPASS GRAFT Status: Acute (2) DM2 (diabetes mellitus, type 2) Status: Chronic (3) Dyslipidemia Code(s): E78.5 - HYPERLIPIDEMIA, UNSPECIFIED Status: Chronic (4) Hypertension Code(s): I10 - ESSENTIAL (PRIMARY) HYPERTENSION Status: Chronic - Plan cont current plan of care * D/C Home with Insulin/Metformin/Amaryl * Instructions provided
[2017-09-18] MEDS: HYDROcodone/Acetaminophen 5/325 mg Tablet PO PRN (13:24)
[2017-09-18 13:44] VITALS: BP 123/58; TEMP 98.3
--- NOTE | 2017-09-18 15:18 | DIS ---
DATE OF ADMISSION: 09/12/2017 DATE OF DISCHARGE: 09/18/2017 DISCHARGE DISPOSITION: Home. DISCHARGE FOLLOWUP: 1. With Dr. Montgomery in 3 weeks. 2. The patient will arrange for PCP in the area. DISCHARGE DIAGNOSES: 1. Status post coronary artery bypass graft x2 with grafting to left anterior descending artery and right posterior descending artery. 2. Diabetes mellitus type 2. 3. Hyperlipidemia. 4. Hypertension. DISCHARGE MEDICATIONS: 1. Aspirin 81 mg p.o. daily. 2. Atorvastatin 40 mg p.o. daily. 3. Coreg 3.125 mg p.o. b.i.d. 4. Omnicef 300 mg p.o. b.i.d. 5. Amaryl 4 mg p.o. daily. 6. Zoloft 100 mg p.o. b.i.d. 7. Metformin 1000 mg p.o. b.i.d.; this was increased from her normal dose of 500 mg p.o. b.i.d. 8. Levemir subcu 5 units in the morning and 10 units in the evening. 9. Insulin sliding scale. Please note prescriptions as well as equipment prescriptions have been provided. INPATIENT CONSULTATIONS: 1. Dr. Higgins, Pulmonary Critical Care. 2. Dr. Maxwell, Cardiology. 3. [facility] [place] physicians. INPATIENT PROCEDURES: Coronary artery bypass graft x2 with good quality SIMS to 1.5 mm LAD, a satis factory saphenous vein to 2 mm distal right proximal PDA. BRIEF HOSPITAL COURSE: Ms. Laurie Kaplan is a 71-year-old female who underwent cardiac catheteriz ation and it showed lesion of 90% LAD and right coronary lesions. She was then taken to the operati ng room on the day of catheterization where she underwent a 2-vessel bypass grafting to the LAD and right PDA. Please see procedural notes for details. Postoperatively, her course was unremarkable. The hospitalist service was consulted for inpatient management for further medical management. The patient is a diabetic and had hemoglobin A1c of 9.2. Her metformin was increased to 1000 mg p.o. b .i.d. and she was continued on her Amaryl. In addition, given her elevated hemoglobin A1c, she was started on basal insulin with Levemir as well as short acting with human insulin. The patient's blo od sugars were monitored. She was followed by both Hospitalist Service as well as Cardiovascular Martini rgariana. On 09/18/2017, she was deemed appropriate for discharge home with follow up in 3 weeks with cardiovascular surgeon. She has been given a new insulin regimen as well as increasing her oral hyp oglycemics. She has been given further education in regards to insulin. I have provided her with p rescriptions for this as well as prescriptions for equipment for blood sugar monitoring. She unders tands all of these and is clinically appropriate for discharge home. DISCHARGE DIET: Heart healthy. ACTIVITY: As tolerated. RESTRICTIONS: As per postop instructions. ALLERGIES: SURGICAL TAPE. CODE STATUS: FULL CODE. I have explained all this to the patient at bedside. She is agreeable to the plan of discharge. Al carlos manuel questions have been answered. Time required for discharge 31 minutes.
== END 2017-09-18 14:20 | disposition home or self-care (01) | DRG 233 ==
LOC: CCL 06:08 → CCU 10:57 → 2NO 09-14 13:56
PROVIDERS: ADMIT Thoracic Surgery (Cardiothoracic Vascular Surgery); ATTEND Thoracic Surgery (Cardiothoracic Vascular Surgery)
PROC: 021009W Bypass Coronary Artery, One Artery from Aorta with Autologous Venous Tissue, Open Approach (ICD-10-PCS; principal; 2017-09-12)
PROC: 4A023N7 Measurement of Cardiac Sampling and Pressure, Left Heart, Percutaneous Approach (ICD-10-PCS; 2017-09-12)
PROC: 02100Z9 Bypass Coronary Artery, One Artery from Left Internal Mammary, Open Approach (ICD-10-PCS; 2017-09-12)
PROC: 06BQ0ZZ Excision of Left Saphenous Vein, Open Approach (ICD-10-PCS; 2017-09-12)
PROC: 5A1221Z Performance of Cardiac Output, Continuous (ICD-10-PCS; 2017-09-12)
PROC: B2111ZZ Fluoroscopy of Multiple Coronary Arteries using Low Osmolar Contrast (ICD-10-PCS; 2017-09-12)
PROC: B2151ZZ Fluoroscopy of Left Heart using Low Osmolar Contrast (ICD-10-PCS; 2017-09-12)
PROC: B31N1ZZ Fluoroscopy of Other Upper Arteries using Low Osmolar Contrast (ICD-10-PCS; 2017-09-12)
DX: I25.110 Atherosclerotic heart disease of native coronary artery with unstable angina pectoris (principal); J18.9 Pneumonia, unspecified organism; I11.0 Hypertensive heart disease with heart failure; I25.2 Old myocardial infarction; Z95.5 Presence of coronary angioplasty implant and graft; E78.2 Mixed hyperlipidemia; T50.906A Underdosing of unspecified drugs, medicaments and biological substances, initial encounter; Z91.128 Patient's intentional underdosing of medication regimen for other reason; E11.51 Type 2 diabetes mellitus with diabetic peripheral angiopathy without gangrene; E11.65 Type 2 diabetes mellitus with hyperglycemia; D64.9 Anemia, unspecified; T82.855A Stenosis of coronary artery stent, initial encounter; M48.00 Spinal stenosis, site unspecified; Z79.4 Long term (current) use of insulin; Z87.891 Personal history of nicotine dependence
CPT/HCPCS: 36415; 36416; 36430; 71010; 76942; 80048; 82805; 83036; 85025; 85610; 85730; 86850; 86900; 86901; 93005; 93010; 93458; 93798; 93976; 94002; 94150; 94640; 99152; A4216; C1769; J0692; J1642; J1644; J1650; J1815; J1885; J1940; J2001; J2250; J2270; J2405; J2704; J3010; J3475; J3480; J7050; S0028

== ENCOUNTER 2017-10-23 10:57 | Outpatient (CLI) | payer MEDICARE ==
--- NOTE | 2017-10-23 12:36 | RAD ---
AP AND OBLIQUE VIEWS RIGHT RIBS: History: 72-year-old female with history of right rib pain. FINDINGS: AP and oblique views demonstrates no evidence of right rib fractures, subluxations, or bony lesions. IMPRESSION: Unremarkable AP and oblique views right ribs. POS: [facility]
--- NOTE | 2017-10-23 12:41 | RAD ---
PA AND LATERAL VIEWS CHEST: HISTORY: Right-sided rib pain. Chest pain. COMPARISON: 09/14/2017 FINDINGS: Changes of median sternotomy are again seen. The heart size is normal. The aorta is tortuous. No f ocal areas of consolidation, pneumothorax, or pleural effusions are identified. There are mild degen erative changes in the spine. IMPRESSION: No radiographic evidence of acute cardiopulmonary process. POS: [facility]
== END 2017-10-23 10:58 | disposition home or self-care (01) ==
LOC: RAD 10:57
PROVIDERS: ATTEND Family Medicine
DX: R07.81 Pleurodynia (principal)
CPT/HCPCS: 71020

== ENCOUNTER 2020-08-20 06:51 | Inpatient (IN) | payer MEDICARE, OTHER ==
[2020-08-20] MEDS ORDERED: Nitroglycerin 0.4 MG TAB 1 EACH ONE (08:00)
[2020-08-20] MEDS ORDERED: Acetaminophen 500 MG TAB ONE (08:00)
[2020-08-20 08:19] LABS: Hemoglobin 10.3 g/dL (12.0-16.0); Mean Corpuscular HGB CONC 31.6 g/dL (32.0-36.0); Mean Corpuscular Hemoglobin 23.5 pg (27.0-31.0); Mean Corpuscular Volume 74.2 fL (78.0-98.0); Mean Platelet Volume 8.5 fL (7.4-10.4); Platelet Count 245 thou/uL (130-400); RBC Distribution Width 15.3 % (11.5-14.5); Red Blood Cell (RBC) Count 4.39 mill/uL (4.20-5.40); White Blood Cell (WBC) Count 7.6 thou/uL (4.8-10.8)
[2020-08-20 08:39] LABS: ALT (SGPT) 17 U/L (8-55); AST (SGOT) 18 U/L (5-34); Albumin 4.2 g/dL (3.4-4.8); Alkaline Phosphatase 63 U/L (40-110); Anion Gap 15 mmol/L (10-20); BUN (Urea Nitrogen) 18 mg/dL (9.8-20.1); Bilirubin, Total 0.4 mg/dL (0.2-1.2); Calc. Creatinine Clearance 0 mL/min (70-130); Calcium 9.1 mg/dL (7.8-10.44); Carbon Dioxide 25 mmol/L (23-31); Chloride 106 mmol/L (98-107); Estimated GFR-MDRD 72; Globulin 2.3 g/dL (2.4-3.5); Glucose 158 mg/dL (83-110); Potassium 3.9 mmol/L (3.5-5.1); Protein, Total 6.5 g/dL (6.0-8.3); Sodium 142 mmol/L (136-145)
[2020-08-20 08:52] LABS: #Eosinphils 0.1 thou/uL (0.0-0.7); #Lymphocytes 1.4 thou/uL (1.20-3.40); #Monocytes 0.4 thou/uL (0.11-0.59); #Neutrophils 5.6 thou/uL (1.40-6.50); %Basophils 0.4 % (0.0-1.0); %Eosinophils 1.9 % (0.0-10.0); %Lymphocytes 18.3 % (21.0-51.0); %Monocytes 5.3 % (0.0-10.0); %Neutrophils 74.2 % (42.0-75.0); Anisocytosis SLIGHT = 6-15 cells (100X) (0-5/hpf); Hypochromia SLIGHT = 6-15 cells (100X) (0-5/hpf); MDiff Complete? YES; Microcytosis MODERATE=15-30 cells (100X) (0-5/hpf); Platelet Morphology Comment Appears Adequate; Polychromasia SLIGHT = 2-3 cells (100X) (0-2/hpf)
--- NOTE | 2020-08-20 09:09 | RAD ---
PORTABLE CHEST: HISTORY: Syncope. COMPARISON: 09/14/2017 study. FINDINGS: Heart size is within normal limits. There are postop sternotomy changes. Linear scarring is seen in the left base. No focal infiltrates or signs of failure. IMPRESSION: No active intrathoracic disease. POS: OFF
[2020-08-20] MEDS ORDERED: Acetaminophen 325 MG TAB PO PRN (11:40)
[2020-08-20] MEDS ORDERED: Acetaminophen 650 MG Suppository PR PRN (11:40)
[2020-08-20] MEDS ORDERED: Nitroglycerin 0.4 MG TAB (25 Tab Bottle) SL PRN (11:43)
[2020-08-20] MEDS ORDERED: Dextrose 5% in Water 1,000 ML IV PRN (12:06)
[2020-08-20] MEDS ORDERED: Dextrose 50% Abboject 50 ML SYRINGE SLOW IVP PRN (12:06)
[2020-08-20] MEDS ORDERED: HumaLOG 300 UNITS/3 ML VIAL SC PRN ×2 (12:06)
[2020-08-20] MEDS ORDERED: Dextrose 5 %-0.45 % NaCl 1,000 ML IV SCH (12:15)
[2020-08-20 12:42] LABS: Troponin I 0.035 ng/mL (< 0.028)
[2020-08-20] MEDS ORDERED: Ondansetron ODT 4 MG TAB PO PRN (12:45)
[2020-08-20] MEDS ORDERED: Ondansetron PF 4 MG/2 ML Vial IVP PRN (12:45)
--- NOTE | 2020-08-20 12:54 | HP ---
TIME OF ASSESSMENT: 1100 hours. PRIMARY CARE PHYSICIAN: Dr. Corrie Faulkner. CHIEF COMPLAINT: Chest pain. HISTORY OF PRESENT ILLNESS: Ms. Lind is a 74-year-old woman, who presents to the emergency department with complaints of chest pain, which she states was preceded by sudden dizziness, described as a spinning sensation that occurred while she was lying in bed. The patient states that she was in bed for approximately 20 minutes after getting up to use the restroom when the dizziness started. She states she was lying on her right side and felt as if she was going to pass out. She laid onto her back and again felt a spinning sensation and called out for her daughter. Immediately after that, within seconds of dizziness resolved, she began to feel pressure in the center of her chest and became diaphoretic. The pain was 8/10 in severity, which again she describes as pressure, radiating down her left arm. She then began to feel left-sided chest pain, described as sharp pain that has been intermittent and appears to worsen with deep inspiration and with certain movements. She states the pain is nonreproducible on palpation. Denies any associated shortness of breath, cough, or hemoptysis. No nausea or vomiting. Denies any abdominal pain. The patient states that after arriving to the emergency department, she noted improvement when she was given nitroglycerin. The patient reports having recurring episodes of the sharp pain that is less severe in intensity, which she rates a 5/10 and states it continues to occur only with deep inspiration. She denies any recent fevers, chills, or sweats. All other review of systems are negative. The patient has a known history of CAD and had an ME in the past. States the symptoms today are different from what she experienced with her previous ME. She is known to Dr. Maxwell, whom she is scheduled to follow up with in September. The patient has a history of CABG x2. EMERGENCY DEPARTMENT COURSE: In the emergency department, she underwent an EKG that showed normal sinus rhythm with a heart rate of 76. T-wave inversion seen in the anterior precordial leads. No ST-segment changes. Chest x-ray done was unremarkable. Laboratory studies notable for white count 7.6, hemoglobin 10.3, hematocrit 32.6, platelets . She had a D-dimer checked, which was negative. Initial troponin was negative. LFTs unremarkable. BUN 19, creatinine . Renal function essentially stable. In the ED, she has been given 1 g of Tylenol Extra Strength for her pain and nitroglycerin 0.4 mg, which did help to alleviate her chest discomfort. Tylenol was given for subsequent headache. PAST MEDICAL HISTORY: 1. CAD. 2. History of ME. 3. Hypertension. 4. Hyperlipidemia. 5. Diabetes mellitus. 6. Depression. 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 PAST SURGICAL HISTORY: 1. Cardiac stent x1. 2. Hysterectomy. 3. Appendectomy. 4. Fibroid tumor removal. 5. CABG x2 in August 2017. SOCIAL HISTORY: The patient lives alone. She is fully independent. Denies any history of tobacco use, alcohol consumption, or illicit drug use. FAMILY HISTORY: Noncontributory. ALLERGIES: SURGICAL TAPE. CURRENT MEDICATIONS: 1. Atorvastatin. 2. Carvedilol. 3. Lisinopril. 4. Metformin. 5. Levemir. 6. Glimepiride. PHYSICAL EXAMINATION: GENERAL: The patient appears well developed, well nourished, is in no acute distress. VITAL SIGNS: Temperature 99, pulse 80, blood pressure 179/70, respirations 17, and O2 saturation 97% on room air. HEENT: Normocephalic and atraumatic. Pupils are equal, round, and reactive to light. Sclerae icterus. Oropharynx is clear. NECK: Supple without any lymphadenopathy. LUNGS: Clear to auscultation bilaterally without any wheezes, rales, or rhonchi. CARDIAC: Regular rate and rhythm. No reproducible pain with palpation of the chest wall. Well-healed incision from previous CABG. ABDOMEN: Soft, nontender, nondistended with bowel sounds present. No guarding or rigidity. No renal angle tenderness. No palpable masses. EXTREMITIES: No lower extremity swelling or edema. No calf tenderness. SKIN: Warm and dry. NEUROLOGIC: Alert and oriented x3. Speech normal. Left-sided facial paralysis, which is chronic, associated with history of Crook palsy. Power 5/5 in all extremities with sensation intact, facial movements affected by history of Crook's palsy. INVESTIGATIONS: As mentioned above in HPI. IMPRESSION AND PLAN: Ms. Lind is a very pleasant 74-year-old woman, who presents to the emergency department with complaints of dizziness followed by chest pain, who is being admitted for management of the followin. Chest pain. EKG unremarkable and initial troponin negative. We will plan to continue to trend troponins. The patient with a history of coronary artery bypass grafting and stent x1. Has had a myocardial infarction in the past. She is known to Dr. Maxwell. Consultation placed to Dr. Otoole, who is on-call for Cardiology today. We will continue with nitroglycerin, which she states is alleviating her pain. We will keep her n.p.o. pending Cardiology review. Of note, D-dimer negative. Consider CT chest to rule out underlying pulmonary abnormality. 2. Dizziness. Has resolved and was transient. Given her medical history, we will obtain workup to rule out transient ischemic attack. We will obtain CT of the head, echo, and carotid Dopplers. Continue to monitor. Lipid panel with morning labs. 3. Diabetes mellitus. Monitor glucose. Initiate sliding scale. We will start gentle hydration with D5 half-normal saline at 50 mL/h. She will be kept n.p.o. until seen by Cardiology. 4. Hypertension. Monitor blood pressure. Reconcile medications once verified. 5. Hyperlipidemia. As mentioned, we will check lipid panel with morning labs. Resume home medications once verified. 6. Gastrointestinal prophylaxis with famotidine. 7. Deep venous thrombosis prophylaxis with mechanical SCDs. 8. Code status, full. Surrogate decision maker is her RN, daughters Leticia Alcala and Libra Lind. Case was discussed with Dr. Thomas, who agrees upon the care as described above. Job ID: [id number]
[2020-08-20 12:59] LABS: Magnesium 1.5 mg/dL (1.6-2.6)
[2020-08-20 13:42] VITALS: BMI 26.2
[2020-08-20] MEDS ORDERED: FLU VACC QS2020-21(65YR UP)/PF 240 MCG/0.7 ML SYRINGE IM ONE (13:45)
[2020-08-20] MEDS ORDERED: Electrolyte Replacement Protoc 1 EACH EACH FS SCH (15:00)
[2020-08-20] MEDS ORDERED: Electrolyte Replacement Protocol FS PRN (15:15)
--- NOTE | 2020-08-20 16:00 | CT ---
CT OF BRAIN PERFORMED WITHOUT CONTRAST ENHANCEMENT: 08/20/20 HISTORY: Syncopal episode. There is very mild ventricular and sulcal prominence, age appropriate. There is no signs of intracere bral hemorrhage or extra-axial fluid collections. Mastoid air cells and visualized sinuses are clear. IMPRESSION: No acute intracranial abnormalities. POS: OFF
--- NOTE | 2020-08-20 16:20 | ULT ---
BILATERAL CAROTID DUPLEX ULTRASOUND: 08/20/20 HISTORY: TIA. Real time color Doppler evaluation of the right and left carotid system was performed. On the right side, peak systolic velocity of the common carotid were 105 cm/s. Internal carotid veloc ities of 93 cm/s, external carotid velocities 85 cm/s. On the left side, peak systolic velocity of the common carotid were 101 cm/s. Internal carotid veloc ities of 103 cm/s , external carotid velocities of 59 cm/s. Vertebral flow is antegrade bilaterally. IMPRESSION: No evidence of hemodynamically significant stenosis of either internal carotid artery. POS: OFF
--- NOTE | 2020-08-20 17:24 | CON ---
DATE OF CONSULTATION: REASON FOR CONSULTATION: Chest pain and dizziness. PRIMARY MANAGEMENT LIAISON: Shaka Maxwell MD HISTORY OF PRESENT ILLNESS: Ms. Lind is a pleasant 74-year-old woman, who has a history of CAD, status post stent placement. She recently presented with acute onset dizziness. She states she got up to go to the bathroom and came back to bed and was lying on her left side. She had acute onset of severe dizziness that had lasted 25 to 30 minutes. She then states this slowly subsided. It then recurred while lying on her back. She called her daughter shortly thereafter. She then developed a chest tightness. The tightness lasted for 20 minutes. It resolved. She then was seen and evaluated by EMS. By the time EMS arrived, most of the patient's symptoms have subsided. She also complains of intermittent chest pain that is worse with taking a deep breath. This is different than her pain that occurred earlier. PAST MEDICAL HISTORY: CAD, status post stent placement; hyperlipidemia; diabetes mellitus; hypertension; hypertriglyceridemia. PAST SURGICAL HISTORY: Hysterectomy, appendectomy, tonsillectomy, adenoidectomy. SOCIAL HISTORY: No current tobacco or alcohol use. ALLERGIES: NONE. REVIEW OF SYSTEMS: Ten-point review of systems is reviewed and as above, otherwise negative. CURRENT MEDICATIONS: Include: 1. Carvedilol. 2. Lisinopril. 3. Atorvastatin. 4. Aspirin. 5. Glipizide. 6. Levemir. 7. Metformin. PHYSICAL EXAMINATION: GENERAL: Patient is a pleasant 74-year-old woman, who is in no acute distress. The patient appears their stated age. VITAL SIGNS: Blood pressure 133/60, pulse 71, temperature afebrile. NEUROLOGIC: The patient is alert and oriented x3 with no focal neurologic deficits. HEENT: Sclerae without icterus. Mouth has moist mucous membranes with normal pallor. NECK: No JVD. Carotid upstroke brisk. No bruits bilaterally. LUNGS: Clear to auscultation with unlabored respirations. BACK: No scoliosis or kyphosis. CARDIAC: Regular rate and rhythm with normal S1 and S2. No S3 or S4 noted. No significant rubs, murmurs, thrills, or gallops noted throughout the precordium. PMI is not displaced. There is no parasternal heave. ABDOMEN: Soft, nontender, nondistended. No peritoneal signs present. No hepatosplenomegaly. No abnormal striae. EXTREMITIES: 2+ femoral and 2+ dorsalis pedis pulses. No cyanosis, clubbing, or edema. SKIN: No gross abnormalities. PERTINENT LABORATORY DATA: Peak troponin 0.03. Hemoglobin 10.3. IMPRESSION: 1. Chest pressure. 2. Acute onset dizziness. 3. Coronary artery disease. 4. Status post stent placement. RECOMMENDATIONS: Ms. Lind's symptoms could certainly suggest atypical presentation of CVA. This is currently being worked up. Her current symptoms of chest pressure worse with deep breath are likely to be musculoskeletal. Her troponin is minimally elevated. I discussed proceeding with a noninvasive stress study. She states she is adamant against the use of Lexiscan Cardiolite due to the side effects. If her CVA workup is negative, we will then proceed with coronary angiography. I discussed the procedure in full detail with Ms. Lind. The risks include, but not limited to the following: , stroke, PA, need for emergency surgery, loss of limb, bleeding, and infection, as well as a reaction to the dye causing kidney failure and needing long-term dialysis. I also discussed the risks of PCI to include all of the above including coronary dissection and perforation in addition to acute stent thrombosis and restenosis. All questions about the procedure were answered. Given the above, the patient agreed to proceed with coronary angiography and possible PCI. All questions were answered. Given the above, the patient agreed to proceed with above procedure. Again, we will await findings on MRI and further studies. Job ID: [id number]
[2020-08-20] MEDS ORDERED: Magnesium 2 GM/50 ML 2 GM in Premix Bag 1 BAG IVPB SCH (19:30)
[2020-08-20] MEDS: Famotidine 20 MG TAB PO SCH (21:00)
[2020-08-20] MEDS: Atorvastatin Calcium 40 MG TAB PO SCH (21:01)
[2020-08-20] MEDS ORDERED: Melatonin 3 MG TAB PO PRN (21:21)
[2020-08-21 05:31] LABS: #Basophils 0.1 thou/uL (0.0-0.2); #Eosinphils 0.2 thou/uL (0.0-0.7); #Lymphocytes 1.6 thou/uL (1.20-3.40); #Monocytes 0.5 thou/uL (0.11-0.59); #Neutrophils 4.3 thou/uL (1.40-6.50); %Basophils 0.8 % (0.0-1.0); %Eosinophils 3.6 % (0.0-10.0); %Lymphocytes 23.6 % (21.0-51.0); %Monocytes 7.2 % (0.0-10.0); %Neutrophils 64.9 % (42.0-75.0); Hemoglobin 9.6 g/dL (12.0-16.0); Mean Corpuscular HGB CONC 31.5 g/dL (32.0-36.0); Mean Corpuscular Hemoglobin 23.4 pg (27.0-31.0); Mean Corpuscular Volume 74.1 fL (78.0-98.0); Mean Platelet Volume 8.7 fL (7.4-10.4); Platelet Count 234 thou/uL (130-400); RBC Distribution Width 15.2 % (11.5-14.5); Red Blood Cell (RBC) Count 4.12 mill/uL (4.20-5.40); White Blood Cell (WBC) Count 6.6 thou/uL (4.8-10.8)
[2020-08-21 05:55] LABS: Anion Gap 15 mmol/L (10-20); BUN (Urea Nitrogen) 15 mg/dL (9.8-20.1); Calc. Creatinine Clearance 77 mL/min (70-130); Calcium 8.4 mg/dL (7.8-10.44); Carbon Dioxide 23 mmol/L (23-31); Cardiac Risk 3.9 (Less than 4.5); Chloride 106 mmol/L (98-107); Cholesterol 125 mg/dl (< 200 Desired); Estimated GFR-MDRD 77; Glucose 141 mg/dL (83-110); HDL Cholesterol 32 mg/dL (>60 Neg Risk); LDL Cholesterol, Calculated 54 mg/dL; Potassium 3.6 mmol/L (3.5-5.1); Sodium 140 mmol/L (136-145); Triglycerides 197 mg/dL (Less than 150)
[2020-08-21] MEDS ORDERED: Magnesium 2 GM/50 ML 2 GM in Premix Bag 1 BAG IVPB SCH (06:30)
[2020-08-21] MEDS ORDERED: ALPRAZolam 0.25 MG TAB PO PRN (10:16)
[2020-08-21] MEDS: Aspirin 81 mg Enteric Coated Tablet PO SCH (10:52)
[2020-08-21] MEDS: Lisinopril 5 MG TAB PO SCH (10:53)
[2020-08-21] MEDS: Famotidine 20 MG TAB PO SCH ×2 (10:53→20:55)
[2020-08-21] MEDS: Carvedilol 6.25 MG TAB PO SCH (10:53)
--- NOTE | 2020-08-21 12:57 | PDOC.CPN ---
- Subjective Date: 08/21/20 Time: 12:30 Interval history: Patient states no CP since around 2:30 yesterday. Walked in major today and had to stop because she felt like her heart was racing. No CP or SOB at the time. Monitor showed sinus tach 103bpm. Otherwise patient without complaint. - Review of Systems General: denies: fever/chills, weight/appetite/sleep changes, night sweats, fatigue Respiratory: denies: cough, congestion, shortness of breath, exercise intolerance Cardiovascular: denies: chest pain, palpitation, edema, paroxysmal nocturnal dyspnea, orthopnea Gastrointestinal: denies: nausea, vomiting, diarrhea, constipation, abd pain, GI bleeding Musculoskeletal: denies: pain, tenderness, stiffness, swelling, arthritis/arthralgias Neurological: denies: numbness, syncope, seizure, weakness - Objective Allergies/Adverse Reactions: Allergies Allergy/AdvReac Type Severity Reaction Status Date / Time SURGICAL TAPE Allergy Rash Uncoded 08/20/20 13:25 Visit Medications: Current Medications Acetaminophen (Acetaminophen 325 Mg Tab) 650 mg PO Q4H PRN PRN Reason: Headache/Fever/Mild Pain (1-3) Acetaminophen (Acetaminophen 650 Mg Suppository) 650 mg CA Q4H PRN PRN Reason: Headache/Fever/Mild Pain (1-3) Alprazolam (Alprazolam 0.25 Mg Tab) 0.25 mg PO BIDPRN PRN PRN Reason: Anxiety Last Admin: 08/21/20 12:37 Dose: 0.25 mg Documented by: Aspirin (Aspirin 81 Mg Enteric Coated Tablet) 81 mg PO DAILY [facility] Last Admin: 08/21/20 10:52 Dose: 81 mg Documented by: Atorvastatin Calcium (Atorvastatin Calcium 40 Mg Tab) 40 mg PO HS [facility] Last Admin: 08/20/20 21:01 Dose: 40 mg Documented by: Carvedilol (Carvedilol 6.25 Mg Tab) 12.5 mg PO DAILY [facility] Last Admin: 08/21/20 10:53 Dose: 12.5 mg Documented by: Dextrose/Water (Dextrose 50% Abboject 50 Ml Syringe) 25 gm SLOW IVP PRN PRN PRN Reason: Hypoglycemia Famotidine (Famotidine 20 Mg Tab) 20 mg PO BID [facility] Last Admin: 08/21/20 10:53 Dose: 20 mg Documented by: Glucagon (Glucagon 1 Mg/Ml Vial) 1 mg IM PRN PRN PRN Reason: Hypoglycemia Dextrose/Water (D5w) 1,000 mls @ 0 mls/hr IV .Q0M PRN PRN Reason: Hypoglycemia Insulin Human Lispro (Humalog 300 Units/3 Ml Vial) 0 units SC .MILD SLIDING SCALE PRN PRN Reason: Mild Correctional Scale Insulin Human Lispro (Humalog 300 Units/3 Ml Vial) 0 units SC .BEDTIME SLIDING SC PRN PRN Reason: Bedtime Correctional Scale Lisinopril (Lisinopril 5 Mg Tab) 5 mg PO DAILY K[facility] Last Admin: 08/21/20 10:53 Dose: 5 mg Documented by: Melatonin (Melatonin 3 Mg Tab) 6 mg PO HS PRN PRN Reason: Insomnia Miscellaneous Medication (Electrolyte Replacement Protocol) 0 each FS ASDIR PRN; Protocol PRN Reason: ELECTROLYTE REPLACEMENT Nitroglycerin (Nitroglycerin 0.4 Mg Tab (25 Tab Bottle)) 0.4 mg SL Q5MIN PRN PRN Reason: Chest Pain Last Admin: 08/20/20 12:48 Dose: 0.4 mg Documented by: Sodium Chloride (Flush - Normal Saline 10 Ml Syringe) 10 ml IVF Q12H PRN PRN Reason: Saline Flush Last Admin: 08/20/20 20:59 Dose: 10 ml Documented by: Sodium Chloride (Flush - Normal Saline 10 Ml Syringe) 10 ml IVF PRN PRN PRN Reason: Saline Flush Vital Signs & Weight: Vital Signs Temp Pulse Resp BP Pulse Ox 08/21/20 09:08 97.8 F 76 16 132/62 97 08/21/20 04:35 98.2 F 78 16 127/61 98 08/21/20 01:43 98.5 F 75 16 135/60 98 Weight 157 lb 14.4 oz - Physical Exam General: alert & oriented x3, appears well, no apparent distress Neck: supple neck Cardiac: regular rate and rhythm, no murmur Lungs: clear to auscultation, no wheeze, rales, rhonchi Neuro: grossly intact Abdomen: unremarkable, soft Extremities: no edema Skin: clear - Labs Result Diagrams: 08/21/20 05:11 08/21/20 05:11 Troponin/CKMB Troponin I 0.030 ng/mL (< 0.028) H 08/20/20 14:36 - Assessment/Plan Assessment/Plan: 1. Dizziness and near syncope 2. Chest pain 3. Patient is now pain free. Unsure if she wants to proceed with angio. Symptoms were atypical yesterday as pain occurred with deep breathing. No arrhythmias documented on tele. Regardless of decision on angio, needs EVR at discharge. RG to see later today. Needs repeat H/H in AM prior to angio.
[2020-08-21 13:25] LABS: SARS-CoV-2 MS2 Positive; SARS-CoV-2 N Gene Negative; SARS-CoV-2 S Gene Negative; SARS-CoV-2 by NAA Not Detected (NotDetected); SARS-CoV-2 orf1ab Negative
--- NOTE | 2020-08-21 14:03 | PDOC.HOSPP ---
- Subjective Encounter Date: 08/21/20 Encounter Time: 08:00 Subjective: Patient seen for follow-up regarding chest pain. She denies any chest pain at this time. Reports palpitations. Denies nausea or vomiting. - Objective Vital Signs & Weight: Vital Signs (12 hours) Temp Pulse Resp BP Pulse Ox 08/21/20 09:08 97.8 F 76 16 132/62 97 08/21/20 04:35 98.2 F 78 16 127/61 98 Weight Weight 157 lb 14.4 oz I&O: 08/20/20 08/21/20 08/22/20 06:59 06:59 06:59 Intake Total 1240 Output Total 1570 Balance -330 Result Diagrams: 08/21/20 05:11 08/21/20 05:11 Additional Labs: Accuchecks 08/21/20 08/20/20 13:02 21:14 POC Glucose 212 H 141 H I reviewed patient's labs and MAR EKG Reviewed by me: Yes (Telemetry: Sinus tachycardia) Hospitalist ROS - Review of Systems Respiratory: denies: cough, shortness of breath, SOB with excertion, pleuritic pain, wheezing Cardiovascular: denies: chest pain, palpitations, orthopnea, paroxysmal noc. dyspnea, edema, light headedness - Medication Medications: Active Medications Generic Name Dose Route Start Last Admin Trade Name Freq PRN Reason Stop Dose Admin Alprazolam 0.25 mg 08/21/20 10:16 08/21/20 12:37 Alprazolam 0.25 Mg Tab PO 0.25 mg BIDPRN PRN Administration Anxiety Aspirin 81 mg 08/21/20 09:00 08/21/20 10:52 Aspirin 81 Mg Enteric Coated Tablet PO 81 mg DAILY KRYSTA Administration Atorvastatin Calcium 40 mg 08/20/20 21:00 08/20/20 21:01 Atorvastatin Calcium 40 Mg Tab PO 40 mg HS KRYSTA Administration Carvedilol 12.5 mg 08/21/20 09:00 08/21/20 10:53 Carvedilol 6.25 Mg Tab PO 12.5 mg DAILY KRY[facility] Administration Famotidine 20 mg 08/20/20 21:00 08/21/20 10:53 Famotidine 20 Mg Tab PO 20 mg BID KRYSTA Administration Lisinopril 5 mg 08/21/20 09:00 08/21/20 10:53 Lisinopril 5 Mg Tab PO 5 mg DAILY KRYSTA Administration Nitroglycerin 0.4 mg 08/20/20 11:43 08/20/20 12:48 Nitroglycerin 0.4 Mg Tab (25 Tab Bottle) SL 0.4 mg Q5MIN PRN Administration Chest Pain Sodium Chloride 10 ml 08/20/20 11:40 08/20/20 20:59 Flush - Normal Saline 10 Ml Syringe IVF 10 ml Q12H PRN Administration Saline Flush - Exam General Appearance: awake alert Eye: anicteric sclera ENT: moist mucosa Neck: supple Heart - other findings: S1, S2, regular, tachycardic Respiratory: CTAB Gastrointestinal: soft, non-tender Skin: no rashes Psychiatric: normal affect, normal behavior Hosp A/P (1) Chest pain Code(s): R07.9 - CHEST PAIN, UNSPECIFIED Status: Acute (2) DM2 (diabetes mellitus, type 2) Status: Chronic (3) Dyslipidemia Code(s): E78.5 - HYPERLIPIDEMIA, UNSPECIFIED Status: Chronic (4) Hypertension Code(s): I10 - ESSENTIAL (PRIMARY) HYPERTENSION Status: Chronic - Plan Patient's chest pain has improved. She is still trying to decide regarding cardiac catheterization. Continue Accu-Cheks and insulin sliding scale. Continue statin. Hypertension is controlled.
--- NOTE | 2020-08-21 15:58 | MRI ---
MRI BRAIN PERFORMED WITH AND WITHOUT CONTRAST ENHANCEMENT: History: Severe dizziness. Syncopal episode. Comparison: 08-20-2020 CT examination. FINDINGS: Ventricular and sulcal prominence. There are areas of T2 and FLAIR signal change within the white mat ter consistent with some chronic white matter change. No evidence for hemorrhage. No evidence of any acute infarct. Post contrast images show no areas of abnormal contrast enhancement. The pituitary region appears unr emarkable. IMPRESSION: No acute intracranial abnormalities. POS: OFF
--- NOTE | 2020-08-21 17:05 | PDOC.EVN ---
Event Note - Event Note Event Note: I received a message on MDSave from Dr. Riddhi Ricardo, biomedical repair technician at [facility] that patient's stay meets inpatient criteria per the Medicare 2 midnight room and patient has been receiving services since August 20, 2020 and at this time appears highly likely to require a second midnight of medical services in order to satisfactorily complete evaluation and treatment. Accordingly, patient status is being changed to inpatient.
[2020-08-21] MEDS: Atorvastatin Calcium 40 MG TAB PO SCH (20:55)
[2020-08-22 05:10] LABS: Hemoglobin 9.6 g/dL (12.0-16.0)
[2020-08-22] MEDS: Carvedilol 6.25 MG TAB PO SCH (05:33)
[2020-08-22] MEDS: Famotidine 20 MG TAB PO SCH (05:34)
[2020-08-22] MEDS: Aspirin 81 mg Enteric Coated Tablet PO SCH (05:34)
[2020-08-22] MEDS ORDERED: Sodium Chloride 0.9% 1,000 ML IV SCH (06:00)
[2020-08-22] MEDS ORDERED: Lidocaine 1% (PF) 30 ML VIAL ONE (06:42)
[2020-08-22] MEDS ORDERED: Magnesium 2 GM/50 ML 2 GM in Premix Bag 1 BAG IVPB SCH (06:45)
[2020-08-22 07:49] VITALS: TEMP 98.1
[2020-08-22] MEDS ORDERED: Fentanyl 100 MCG/2 ML VIAL ONE ×2 (09:33→10:16)
[2020-08-22] MEDS ORDERED: Midazolam HCl 2 mg/2 ml Vial ONE (09:33)
[2020-08-22] MEDS ORDERED: Nitroglycerin 0.4 MG TAB (25 Tab Bottle) SL PRN (10:27)
[2020-08-22] MEDS ORDERED: Acetaminophen/Codeine 30-300mg Tablet PO PRN ×2 (10:27)
[2020-08-22] MEDS ORDERED: Sodium Chloride 0.9% 200 ML IV PRN (10:27)
[2020-08-22] MEDS: Lisinopril 5 MG TAB PO SCH (11:43)
[2020-08-22] MEDS ORDERED: Iopamidol 370 76% 100 ML VIAL ONE (12:33)
[2020-08-22] MEDS ORDERED: Clopidogrel Bisulfate 300 MG TAB PO SCH (14:00)
[2020-08-22 15:04] VITALS: BP 108/59
--- NOTE | 2020-08-23 02:36 | DIS ---
DATE OF ADMISSION: 08/21/2020 DATE OF DISCHARGE: 08/22/2020 PRIMARY CARE PROVIDER: Dr. Corrie Faulkner. DISCHARGE DIAGNOSES: 1. Chest pain. 2. Coronary artery disease. 3. Dyslipidemia. CONDITION OF THE PATIENT ON THE DAY OF DISCHARGE: Stable. I assessed Ms. Lind on the day of discharge. She denies any chest pain or shortness of breath. Vital signs are stable. S1 and S2 are heard, regular. Lungs are clear to auscultation bilaterally. CONSULTATIONS DURING THIS HOSPITALIZATION: Cardiology, Dr. Otoole. HOSPITAL COURSE: Ms. Lind is a pleasant 74-year-old lady who was admitted to [facility] on August 20, 2020, for chest pain. She was seen by Cardiology Service. She also had MRI of the brain, which did not show any acute intracranial abnormality. Carotid Dopplers did not show any evidence of hemodynamically significant stenosis. In terms of cardiac workup, she underwent cardiac catheterization on August 22, 2020. She was found to have left ventricular ejection fraction of 55%, 2-vessel CAD, 90% LAD with patent SIMS to small diameter LAD, 30% circumflex and 100% RCA with patent SVG to PDA. She was recommended medical therapy. Her Coreg dose has been changed to 6.25 mg two times a day. She has been started on Plavix 75 mg daily. She is being discharged home in a stable condition. ACTIVITY: As tolerated. POST-ACUTE CARE FOLLOWUP: With primary care provider in 3 days. DIET: Diabetic and heart healthy. DISCHARGE DESTINATION: Home. TIME SPENT: Total amount of time spent coordinating this discharge: 33 minutes. Job ID: [id number]
[2020-08-23] MEDS ORDERED: Clopidogrel Bisulfate 75 MG TAB PO SCH (09:00)
--- NOTE | 2020-08-24 07:28 | PQF ---
CLINICAL DOCUMENTATION CLARIFICATION FORM: Dear : Jose M Arora Date / Time: 08/24/20 [id number] Please exercise your independent, professional judgment in responding to the clarification form. Clinical indicators are provided on the bottom of this form for your review Is Chest Pain associated with: Please check appropriate box(es): [ ] Musculoskeletal pain [X ] CAD [ ] Other diagnosis [ ] Unable to determine Physician Signature: Date/Time: For continuity of documentation, please document condition throughout progress notes and discharge summary. Thank You. To be completed by CDI/Coding staff for physician review: Present Clinical Indicators - Signs / Symptoms / Labs Results and Location in Medical Record [X] BP 144/65, Pulse 75, Resp 16, Temp 98.6 Vital signs 08/20 [X] BNP 21.6, Troponi I 0.021; 0.035; 0.030 Laboratory 08/20 [X] LHC Impression: LVEF 55%, 90% LAD with patent SIMS, 30% Circumflex, 100% RCA with patent SVG Cardiac procedure Dr Maxwell 08/22 [X] Presents to the ED with complaints of chest pain, which she states was preceded by sudden dizziness, described as spinning sensation that occurred while she was lying in bed H&P p1 08/20 Perez PA-C [X] The pain was 8/10 in severity, which again she described as sharp pain that has been intermittent and appears to worsen with deep inspiration and with certain movements H&P p1 08/20 Perez PA-C [X] Chest pain. EKG unremarkable and initial troponin negative H&P p3 08/20 Perez PA-C [X] Her symptoms of chest pressure worse with deep breath are likely musculoskeletal Consult Titus Cross 08/20 Present Risk Factors Results and Location in Medical Record [X] 74 year-old Female H&P p1 08/20 Perez PA-C [X] CAD H&P p1 08/20 Perez PA-C [X] Hx of [place] H&P p1 08/20 Perez PA-C [X] HLD H&P p1 08/20 Perez PA-C [X] DM H&P p1 08/20 Perez PA-C [X] HTN H&P p2 08/20 Perez PA-C [X] Hypertriglycerdemia Consult p1 08/20 Dr. Otoole [X] Hypercholesterolemia ED Notes p1 08/21 Dr. Euceda [X] Former Smoker ED Notes p1 08/21 Dr. Euceda Present Treatments Results and Location in Medical Record [X] Nitrostat 0.4 mg Oral JAN 25 [X] IVF NS 1L JAN 25 [X] Tylenol 500 mg Oral JAN 25 [X] Aspirin 81 mg oral JAN 25 [X] [facility] Cardiac procedure Dr Maxwell 08/22 [X] Cardiology consult Consult Titus Cross 08/20 [X] EKG H&P p3 08/20 Perez PAMartC [X] Echocardiogram Collected 08/21 CDS/Service Support Representative Signature: Estephania Majanopatience Phone #: [phone] Date/Time: 08/24/2020726 This is a permanent part of the Medical Record [facility]
== END 2020-08-22 16:33 | disposition home or self-care (01) | DRG 287 ==
LOC: ERS 06:51 → 2SW 12:17 → OBSVTOIN 08-21 17:30
PROVIDERS: ADMIT Internal Medicine; ATTEND Internal Medicine
PROC: 4A023N7 Measurement of Cardiac Sampling and Pressure, Left Heart, Percutaneous Approach (ICD-10-PCS; principal; 2020-08-22)
PROC: B2111ZZ Fluoroscopy of Multiple Coronary Arteries using Low Osmolar Contrast (ICD-10-PCS; 2020-08-22)
PROC: B2181ZZ Fluoroscopy of Left Internal Mammary Bypass Graft using Low Osmolar Contrast (ICD-10-PCS; 2020-08-22)
PROC: B2121ZZ Fluoroscopy of Single Coronary Artery Bypass Graft using Low Osmolar Contrast (ICD-10-PCS; 2020-08-22)
PROC: B2151ZZ Fluoroscopy of Left Heart using Low Osmolar Contrast (ICD-10-PCS; 2020-08-22)
DX: I25.10 Atherosclerotic heart disease of native coronary artery without angina pectoris (principal); Z20.828 Contact with and (suspected) exposure to other viral communicable diseases; I10 Essential (primary) hypertension; E78.5 Hyperlipidemia, unspecified; E11.9 Type 2 diabetes mellitus without complications; F32.9 Major depressive disorder, single episode, unspecified; G51.0 Bell's palsy; E78.1 Pure hyperglyceridemia; E78.00 Pure hypercholesterolemia, unspecified; I25.2 Old myocardial infarction; Z95.5 Presence of coronary angioplasty implant and graft; Z90.49 Acquired absence of other specified parts of digestive tract; Z95.1 Presence of aortocoronary bypass graft; Z90.710 Acquired absence of both cervix and uterus; Z91.048 Other nonmedicinal substance allergy status; Z79.899 Other long term (current) drug therapy; Z79.4 Long term (current) use of insulin; Z87.891 Personal history of nicotine dependence
CPT/HCPCS: 36415; 36416; 70450; 70553; 71045; 76942; 80048; 80053; 80061; 83690; 83735; 83880; 84443; 84484; 85014; 85018; 85025; 85379; 87635; 90471; 90662; 93005; 93306; 93459; 93880; 94760; 96365; 96376; 99152; G0008; G0378; J1644; J2001; J2250; J3010; J3475; Q9967; U0003

== ENCOUNTER 2020-10-07 13:42 | Outpatient (CLI) | payer MEDICARE ==
--- NOTE | 2020-10-07 14:07 | RAD ---
EXAM: Lumbar spine 2 views: HISTORY: Acute midline low back pain without sciatica COMPARISON: None FINDINGS: No evidence for acute fracture or dislocation or significant acute osseous process. Vertebral height loss of T12 have a remote appearance. Alignment:Minimal dextroscoliosis. Discs: Multilevel disc osteophytosis. No evidence for a focal bone lesion. IMPRESSION: Fairly extensive spondylosis.
== END 2020-10-07 13:43 | disposition home or self-care (01) ==
LOC: BICRAD 13:42
PROVIDERS: ATTEND Family Medicine
DX: M54.5 Low back pain (principal); M47.816 Spondylosis without myelopathy or radiculopathy, lumbar region
CPT/HCPCS: 72100

== ENCOUNTER 2020-10-26 11:32 | Outpatient (CLI) | payer MEDICARE ==
--- NOTE | 2020-10-26 18:48 | RAD ---
LEFT HIP TWO VIEWS: 10/26/20 HISTORY: Hip pain. The bones are demineralized. There are arthritic changes of the hip. There is joint space narrowing a nd some osteophytic change. IMPRESSION: Arthritic changes of the left hip. POS: SADIE
== END 2020-10-26 11:33 | disposition home or self-care (01) ==
LOC: BICRAD 11:32
PROVIDERS: ATTEND Family Medicine
DX: M25.552 Pain in left hip (principal); M54.16 Radiculopathy, lumbar region; M16.12 Unilateral primary osteoarthritis, left hip

== ENCOUNTER 2020-10-27 12:57 | Outpatient (CLI) | payer MEDICARE ==
--- NOTE | 2020-10-27 14:09 | MRI ---
MRI lumbar spine noncontrast HISTORY: Low back pain. Left leg radiculopathy. FINDINGS: Chronic partial compression of the T12 vertebral body with approximately 35% loss of height anteriorly. There is desiccation of all of the intervertebral discs. Conus medullaris has a normal appearance. Prominent discogenic endplate changes within the bone marrow. Very heterogeneous bone mar row. Likely osteoporosis. Degenerative changes of the lower thoracic spine are apparent with likely significant stenoses involv ing the right neural foramen at T10-11 and the central canal at T11-12. T12-L1: Disc space narrowing. Mild posterior disc bulge. Circumferential degenerative changes. Fluid in the facets. Thecal sac is patent. Moderate right and mild left foraminal stenoses. L1-2: Mild disc space narrowing and posterior disc bulge. Circumferential degenerative changes. Mild stenosis of the central canal. Mild right and moderate to severe left foraminal stenoses. L2-3: Near complete loss of disc space height. Broad-based left posterolateral disc protrusion, effac ing the left ventral aspect of the thecal sac and origin of the left L4 nerve root. Circumferential degenerative changes. Resultant moderate stenosis of the central canal. Moderate right and severe lef t foraminal stenoses. L3-4: Mild disc space narrowing. Diffuse posterior disc bulge and circumferential degenerative change s. Fluid in the facets. Moderate stenosis of the central canal. Severe bilateral foraminal stenoses, left greater than right. L4-5: Mild disc space narrowing. Mild to moderate posterior disc bulge. Prominent facet hypertrophy a nd ligamentous thickening. Very severe stenosis of the central canal. Severe bilateral foraminal stenoses, right greater than left. L5-S1: Mild disc bulge. Circumferential degenerative changes with fluid in the facets. Moderate steno sis of the central canal. Severe right and moderate left foraminal stenoses. IMPRESSION : Prominent multilevel degenerative changes throughout the lower thoracic spine and the lumbar spine as detailed above. Central canal stenosis most severe at the L4-5 level. Multilevel severe bilateral foraminal stenoses. Mild chronic compression deformity of the T12 vertebral body without residual edema.
== END 2020-10-27 12:58 | disposition home or self-care (01) ==
LOC: BICMRI 12:57
PROVIDERS: ATTEND Family Medicine
DX: M51.16 Intervertebral disc disorders with radiculopathy, lumbar region (principal); M47.26 Other spondylosis with radiculopathy, lumbar region; M47.817 Spondylosis without myelopathy or radiculopathy, lumbosacral region; M47.815 Spondylosis without myelopathy or radiculopathy, thoracolumbar region; M48.061 Spinal stenosis, lumbar region without neurogenic claudication; M48.07 Spinal stenosis, lumbosacral region; M48.05 Spinal stenosis, thoracolumbar region; G95.20 Unspecified cord compression
CPT/HCPCS: 72148

== ENCOUNTER 2021-01-26 10:40 | Outpatient (CLI) | payer MEDICARE | END 2021-01-26 10:41 | disposition home or self-care (01) | LOC: BICMAMMO 10:40 | PROVIDERS: ATTEND Family Medicine | DX: Z12.31 Encounter for screening mammogram for malignant neoplasm of breast (principal) | CPT/HCPCS: 77063; 77067 ==

== ENCOUNTER 2022-03-23 09:26 | Outpatient (CLI) | payer MEDICARE | END 2022-03-23 09:27 | disposition home or self-care (01) | LOC: BICRAD 09:26 | PROVIDERS: ATTEND Family Medicine | DX: M25.561 Pain in right knee (principal); M17.11 Unilateral primary osteoarthritis, right knee; M25.461 Effusion, right knee ==

== ENCOUNTER 2023-12-05 12:35 | Outpatient (CLI) | payer MEDICARE | END 2023-12-05 12:36 | disposition home or self-care (01) | LOC: BICRAD 12:35 | PROVIDERS: ATTEND Family Medicine | DX: R07.81 Pleurodynia (principal) | CPT/HCPCS: 71046 ==

== ENCOUNTER 2024-01-03 14:13 | Outpatient (CLI) | payer MEDICARE | END 2024-01-03 14:14 | disposition home or self-care (01) | LOC: BICMAMMO 14:13 | PROVIDERS: ATTEND Family Medicine | DX: N64.4 Mastodynia (principal) | CPT/HCPCS: 76642; 77066; G0279 ==